=== PATIENT | female | born 1960 | race African-American/Black ===

== ENCOUNTER 2020-08-19 15:09 | Emergency (ER) | payer OTHER ==
[2020-08-19 16:01] LABS: Absolute Lymphocytes (CBC) 1.8 K/uL (0.7-4.9); Basophils % 0.3 % (0-1.3); Hematocrit 37.8 % (36.0-45.0); Lymphocytes % 28.9 % (15.3-44.8); MPV 8.2 fL (7.6-11.3); RBC Red Blood Cell Count 4.61 M/uL (3.86-4.86)
[2020-08-19 16:13] LABS: BUN Blood Urea Nitrogen 10 mg/dL (7-18); Bicarbonate 29 mmol/L (21-32); Glucose Level 101 mg/dL (74-106); NT PRO-BNP 259 pg/mL (<125); Potassium 3.5 mmol/L (3.5-5.1); Sodium Level 141 mmol/L (136-145); Troponin (Emerg Dept Use Only) < 0.02 ng/mL (0.0-0.045)
--- NOTE | 2020-08-19 16:17 | RAD REPORT ---
EXAM DESCRIPTION: Zac Single View08/19/2020 3:35 pm CLINICAL HISTORY: Chest pain COMPARISON: none FINDINGS: The lungs appear clear of acute infiltrate. The heart is normal size IMPRESSION: No acute abnormalities displayed
--- NOTE | 2020-08-19 16:31 | ER ---
Nurse's Notes [facility] Name: Karen Clements Age: 59 yrs Sex: Female : 1960 Arrival Date: 08/19/2020 Time: 15:14 Bed 7 Private MD: Diagnosis: Chest pain, unspecified Presentation: 08/19 15:14 Chief complaint: EMS states: Pt reported non-radiating right sided chest pain chest jl7 pain, rated 5/10 and sharp. Pt states "No chest pain now." in triage but reports LIAO rated 4/10. EMS reports pt going through some stress with neighbors and pt reports chest pain coming from stress. Coronavirus screen: Client denies travel out of the [place] in the last 14 days. At this time, the client does not indicate any symptoms associated with coronavirus-19. Ebola Screen: No symptoms or risks identified at this time. Initial Sepsis Screen: Does the patient meet any 2 criteria? No. Patient's initial sepsis screen is negative. Does the patient have a suspected source of infection? No. Patient's initial sepsis screen is negative. Risk Assessment: Do you want to hurt yourself or someone else? Patient reports no desire to harm self or others. Onset of symptoms was August 19, 2020. Care prior to arrival: None. Transition of care: patient was not received from another setting of care. 15:14 Method Of Arrival: EMS: [facility] 15:14 Acuity: JACQUELIN 3 jl7 Triage Assessment: 15:18 General: Appears in no apparent distress. uncomfortable, Behavior is calm, cooperative, jl7 appropriate for age. Pain: Complains of pain in LIAO Pain currently is 4 out of 10 on a pain scale. Neuro: Level of Consciousness is awake, alert, obeys commands, Oriented to person, place, time, situation. Cardiovascular: Patient's skin is warm and dry. Respiratory: Airway is patent Respiratory effort is even, unlabored, Respiratory pattern is regular, symmetrical. Derm: Skin is pink, warm \\T\\ dry. Musculoskeletal: No signs and/or symptoms reported regarding the musculoskeletal system. Historical: - Allergies: 15:18 No Known Allergies; jl7 - Home Meds: 15:18 eye drops [Active]; jl7 - PMHx: 15:18 Glaucoma; jl7 - PSHx: 15:18 glaucoma; jl7 - Immunization history:: Adult Immunizations unknown. - Social history:: Smoking status: Patient denies any tobacco usage or history of. - Family history:: not pertinent. - Hospitalizations: : No recent hospitalization is reported. Screenin:20 Abuse screen: Denies threats or abuse. Denies injuries from another. Nutritional jl7 screening: No deficits noted. Tuberculosis screening: No symptoms or risk factors identified. 15:46 Fall Risk IV access (20 points). Total Gamble Fall Scale indicates No Risk (0-24 pts). jl7 Assessment: 15:20 General: See triage assessment. jl7 16:20 Reassessment: Patient appears in no apparent distress at this time. No changes from jl7 previously documented assessment. Patient and/or family updated on plan of care and expected duration. Pain level reassessed. Patient is alert, oriented x 3, equal unlabored respirations, skin warm/dry/pink. Vital Signs: 15:14 BP 145 / 77; Pulse 70; Resp 17; Temp 98.6; Pulse Ox 97% ; Weight 97.52 kg; Pain 4/10; jl7 16:20 BP 162 / 79; Pulse 65; Resp 17; Pulse Ox 99% ; jl7 ED Course: 15:14 Patient arrived in ED. jl7 15:17 Triage completed. jl7 15:18 Hao Higgins PA is PHCP. jr8 15:18 Timothy Ortiz MD is Attending Physician. jr8 15:18 Arm band placed on right wrist. jl7 15:19 EKG completed in triage. Results shown to MD. jl7 15:20 Patient has correct armband on for positive identification. Placed in gown. Bed in low jl7 position. Call light in reach. Side rails up X2. quality assurance monitor final on. Pulse ox on. NIBP on. Warm blanket given. 15:20 Patient maintains SpO2 saturation greater than 95% on room air. jl7 15:29 Daniel Christensen, BARBER is Primary Nurse. jl7 15:35 XRAY Chest (1 view) In Process Unspecified. EDMS 15:45 Initial lab(s) drawn, by ED staff, sent to lab. Inserted saline lock: 20 gauge in right jl7 antecubital area, using aseptic technique. ,using aseptic technique. Inserted by , women nurse Blood collected. 16:20 No provider procedures requiring assistance completed. jl7 16:46 IV discontinued, intact, bleeding controlled, No redness/swelling at site. Pressure jl7 dressing applied. Administered Medications: No medications were administered Outcome: 16:31 Discharge ordered by . rn 16:46 Discharged to home ambulatory. jl7 16:46 Condition: stable 16:46 Discharge instructions given to patient, Instructed on discharge instructions, follow up and referral plans. Demonstrated understanding of instructions, follow-up care. 16:47 Patient left the ED. jl7 Signatures: Dispatcher [employer] EDMS Timothy Ortiz MD MD rn Hao Higgins PA PA jr8 Daniel Christensen RN RN jl7 Corrections: (The following items were deleted from the chart) 16:46 16:20 IV discontinued, intact, bleeding controlled, No redness/swelling at site. jl7 Pressure dressing applied, jl7
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
[2020-08-19 16:53] VITALS: TEMP 98.6
[2020-08-19 16:54] VITALS: BP 162/79; O2SAT 99
--- NOTE | 2020-08-22 11:19 | EKG ---
Test Date: 2020-08-19 Test Time: 15:18:27 Fisher Diving: ESA MEASUREMENT RESULTS: Intervals: Rate: 82 MD: 134 QRSD: 74 QT: 380 QTc: 443 Index: P: 78 MD: 134 QRS: 27 T: -8 INTERPRETIVE STATEMENTS: Normal sinus rhythm Nonspecific T wave abnormality Abnormal ECG No previous ECG available for comparison Electronically Signed On 08-22-20 11:14:49 CDT by Walt Mena
== END 2020-08-19 16:47 | disposition home or self-care (01) ==
LOC: ER 15:09
DX: R07.9 Chest pain, unspecified (principal)
CPT/HCPCS: 36415; 71045; 80048; 83880; 84484; 85025; 93005; 99285

== ENCOUNTER 2021-01-03 19:25 | Emergency (ER) | payer OTHER ==
--- OUTSIDE RECORDS SUMMARY | 2021-01-03 19:30 | XMS REPORT | Continuity of Care Document ---
:1960 Author Organization [facility] t Address [address] [id number] Care Team Providers Name Role Phone Unavailable Unavailable Unavailable Payers Payer Name Policy Type Policy Number Effective Date Expiration Date S ource Problems This patient has no known problems. Allergies, Adverse Reactions, Alerts Allergy Allergy Status Severity Reaction(s) Onset Inactive Treating Comm ents Source Name Type Date Date Clinician No Known DA Active U 2019-11 [facility] Allergie 12-11 [place] s 00:00: d 00 [facility] Medications This patient has no known medications. Procedures This patient has no known procedures. Results Test Description Test Time Test Comments Results Result Comments Source TROPONIN-I 2020-10-11 23:13:00 Test Item Value Reference Range Interpretation Comme nts TROPONIN-I (test code = < 0.015 NG/ML 0.000-0.045 N Neg ative: </= 0.045 Positive: TROPI) >/= 0.046 Corre lation with serial results, other cardiac markers, and cl inical findings is necessary to determine the clinical signi ficance of this result. Quantit ative results using different methodologies should not be c ompared to one another as nume rical results may varyby meth od. Completed by Nursing: NOUA RFLX MICR CULT IF [id number] 21:41:00 Test Item Value Reference Range Interpretation Comments UA COLOR (test code = YELLOW discript YEL/STRAW COLU) UA APPEARANCE (test code CLEAR discript CLEAR = APPU) UA GLUCOSE DIPSTICK (test NEGATIVE mg/dL NEG code = DGLUU) UA BILIRUBIN DIPSTICK NEGATIVE mg/dL NEG (test code = BILU) UA KETONE DIPSTICK (test NEGATIVE mg/dL NEG code = KETU) UA SPECIFIC GRAVITY (test 1.010 SG 1.005-1.030 code = SGU) UA BLOOD DIPSTICK (test TRACE mg/DL NEG A code = JULIAN) UA PH DIPSTICK (test code 6.0 pH UNITS 5.0-7.0 = GRACE) UA PROTEIN DIPSTICK (test NEGATIVE mg/dL NEG code = PROU) UA UROBILINIOGEN DIPSTICK 0.2 mg/dL <2.0 (test code = URO) UA NITRITE DIPSTICK (test NEGATIVE SCREEN NEG code = JAGDISH) UA LEUKOCYTE ESTERASE NEGATIVE Leuk/mcL NEGATIVE DIPSTICK (test code = LEUU) UA WBC (test code = WBCU) 0-1 #WBC/HPF 0-3 UA RBC (test code = RBCU) 0-1 #RBC/HPF 0-3 UA BACTERIA (test code = NONE SEEN /HPF NONE-TRACE BACU) UA SQUAMOUS CELLS (test TRACE /HPF NONE code = SQU) UA CULTURE NEEDED? (test NO, WBC<10 Criteria Culture CHK code = UACULT) Indication for culture: RiskForSepsis-no oth srcUA RFLX MICR CULT IF [id number] 21:38:00 Test Item Value Reference Range Interpretation Comments UA COLOR (test code = COLU) YELLOW discript YEL/STRAW UA APPEARANCE (test code = CLEAR discript CLEAR APPU) UA GLUCOSE DIPSTICK (test NEGATIVE mg/dL NEG code = DGLUU) UA BILIRUBIN DIPSTICK (test NEGATIVE mg/dL NEG code = BILU) UA KETONE DIPSTICK (test NEGATIVE mg/dL NEG code = KETU) UA SPECIFIC GRAVITY (test 1.010 SG 1.005-1.030 code = SGU) UA BLOOD DIPSTICK (test TRACE mg/DL NEG A code = JULIAN) UA PH DIPSTICK (test code = 6.0 pH UNITS 5.0-7.0 GRACE) UA PROTEIN DIPSTICK (test NEGATIVE mg/dL NEG code = PROU) UA UROBILINIOGEN DIPSTICK 0.2 mg/dL <2.0 (test code = URO) UA NITRITE DIPSTICK (test NEGATIVE SCREEN NEG code = JAGDISH) UA LEUKOCYTE ESTERASE NEGATIVE Leuk/mcL NEGATIVE DIPSTICK (test code = LEUU) UA CULTURE NEEDED? (test Criteria Culture CHK code = UACULT) Indication for culture: RiskForSepsis-no oth src- XR CHEST 1 [id number] 21:09:00[facility] 1960 Sex: F Name: LOLI FRANCES [facility] : 1960ge/S: 59 / F [id number] #: [id number] Loc: [place] [address] Phys: Meredith Hidalgo MD Acct: [id number] Dis Date: Status: REG ER PHONE#: [phone] Exam Date: 10/11/20202029 FAX #: Reason: chest pain EXAMS: CPT: [id number] XR CHEST 1 V 49640 Fluoro Time: DAP (Gy m2): Air Kerma (mGy): Location code: H5 Chest1 view Indication: chest pain. Comparison: None Findings: The heart and mediastinum are not remarkable. Costophrenic angles are clear. Lungs are clear. Bone is unremarkable for age. Impression: 1. No radiographic evidence of acute cardiopulmonary disease. Electronically Signed by Ricki Desai o n 10/11/2020 at 2109 Reported and signed by: Alvino Desai M.D. CC: Meredith Hidalgo MD PAGE 1 SignedReport Name: LOLI FRANCES [facility] : 1960 Age/S: 59 / F [id number] #: [id number] Loc: [place] [address] Phys: Meredith Hidalgo MD Acct: [id number] Dis Date: Status: REG ER PHONE #: [phone] Exam Date: 10/11/20202029 FAX #: Reason: chest pain EXAMS: CPT: [id number] XR CHEST 1 V 60502 Fluoro Time: DAP (Gy m2): Air Kerma (mGy): <Continued> Technologist: Gwendolyn Breen RT(R)(CT) Trnscb Date/Time: 10/11/2020 (2108) [email or web address] Orig Print D/T: S: 10/11/2020 (2111) PAGE 2 Signed Report- CT HEAD/BRAIN W/O CONT 2020-10-11 20:43:00 [facility] 1960 Sex: F Name: LOLI FRANCES [facility] : 1960ge/S: 59 / F [address] #: [id number] Loc: [place] [address] Phys: Meredith Hidalgo MD Acct: [id number] Dis Date: Status: REG ER PHONE#: [phone] Exam Date: 10/11/20202022 FAX #: Reason:weakness EXAMS: CPT: [id number] CT HEAD/BRAIN W/O CONT 32796 Location code: [address] Brain Without Contrast Indication: weakness Comparison: None Technical factors: Axial images were obtained from the base of the skull to the vertex. Sagittal and coronal reconstruction. This exam was performed according to our departmental dose-optimization program, which includes automated exposure control, adjustment of the mA and/or kV according to patient size and/or use of iterative reconstruction technique. Findings: Ventricles and sulci are of normal caliber for patient age. No hemorrhage, mass-effect, or abnormal extra-axial fluid collection. No evidence of acute infarct. Calvarium is unremarkable. No confluent otomastoid disease. Orbits are normal in appearance.Paranasal sinuses are clear. Impression: 1. Normal non contrast CT scan of the brain. at 2042 Reported and signed by: Alvino Desai M.D. PAGE 1 Signed Report (CONTINUED) Name: LOLI FRANCES [place] : 1960 Age/S: 59 / F [id number] Unit #: [id number] Loc: [place] [address] Phys: Meredith Hidalgo MD Acct: [id number] Dis Date: Status: REG ER PHONE #: [phone] Exam Date: 10/11/20202022 FAX #: Reason: weakness EXAMS: CPT: [id number] CT HEAD/BRAIN W/O CONT 21888 <Continued> CC: Meredith Hidalgo MD Technologist:Gwendolyn Breen, RT(R)(CT) CTDI: DLP: Trnscb Date/Time: 10/11/2020 (2042) [email or web address] Orig Print D/T: S: 10/11/2020 (2046) PAGE 2 Signed ReportBASIC METABOLIC [id number] 20:32:00 Test Item Value Reference Range Interpretation Comments SODIUM (test code = NA) 140 mmol/L 134-147 N POTASSIUM (test code = 3.5 mmol/L 3.4-5.0 N K) CHLORIDE (test code = 109 mmol/L 100-108 H CL) CARBON DIOXIDE (test 26 mmol/L 21-32 N code = CO2) ANION GAP (test code = 5.0 GAP calc 4.0-15.0 N GAP) GLUCOSE (test code = 102 MG/DL 70-110 N GLU) BLOOD UREA NITROGEN 13 MG/DL 7-18 N (test code = BUN) GLOMERULAR FILTRATION >=60 max estimate >60 RATE (test code = GFR) estGFR CREATININE (test code = 0.7 MG/DL 0.6-1.0 N CREAT) CALCIUM (test code = CA) 9.0 MG/DL 8.5-10.1 N Completed by Nursing: NOHEPATIC FUNCTION [id number] 20:32:00 Test Item Value Reference Range Interpretation Comments TOTAL PROTEIN (test code = PROT) 7.5 G/DL 6.4-8.2 N ALBUMIN (test code = ALB) 3.4 G/DL 3.4-5.0 N BILIRUBIN TOTAL (test code = BILT) 0.40 MG/DL 0.2-1.2 N BILIRUBIN DIRECT (test code = 0.10 MG/DL 0.00-0.30 N BILD) BILIRUBIN INDIRECT (test code = 0.30 MG/DL 0.2-1.2 N BILIND) SGOT/AST (test code = AST) 9 Unit/L 15-37 L SGPT/ALT (test code = ALT) 18 Unit/L 12-78 N ALKALINE PHOSPHATASE TOTAL (test 74 Unit/L 45-117 N code = ALKP) Completed by Nursing: NOCREATINE KINASE (CK)2020-10-11 20:32:00 Test Item Value Reference Range Interpretation Comments CREATINE KINASE (CK) (test code = 58 Unit/L 26-192 N CK) Completed by Nursing: NONT PRO-BRAIN NATRIURETIC [id number] 20:32:00 Test Item Value Reference Range Interpretation Comments NT PRO-BRAIN NATRIURETIC PEPTI 177 PG/ML 0-100 H (test code = PROBNP) Completed by Nursing: [id number] 20:32:00 Test Item Value Reference Range Interpretation Comments TROPONIN-I (test < 0.015 NG/ML 0.000-0.045 N Negative: </= 0.045 code = TROPI) Positive: >/= 0.046 Correlation wit h serial results, other cardiac markers, and cl inical findings is nec essary to determine the c linical significance of this result. Quantit ative results using d ifferent methodologies s hould not be compared to one another as nume rical results may jack yby method. Completed by Nursing: NOCBC W/O [id number] 20:11:00 Test Item Value Reference Range Interpretation Comments WHITE BLOOD CELL (test code = WBC) 6.5 K/mm3 3.5-11.0 N RED BLOOD CELL (test code = RBC) 4.27 M/mm3 4.70-6.10 L HEMOGLOBIN (test code = HGB) 12.0 G/DL 10.4-14.9 N HEMATOCRIT (test code = HCT) 34.5 % 31.5-44.1 N MEAN CELL VOLUME (test code = MCV) 80.8 Fl 84.5-98.6 L MEAN CELL HGB (test code = MCH) 28.1 pg 27.0-34.2 N MEAN CELL HGB CONCETRATION (test 34.8 G/DL 31.5-34.0 H code = MCHC) RED CELL DISTRIBUTION WIDTH (test 14.2 SD 11.5-14.5 N code = RDW) PLATELET COUNT (test code = PLT) 281 K/mm3 150-450 N MEAN PLATELET VOLUME (test code = 9.70 fL 7.0-10.5 N MPV)
[2021-01-03 22:40] LABS: Absolute Lymphocytes (CBC) 3.1 K/uL (0.7-4.9); Basophils % 0.3 % (0-1.3); Hematocrit 33.5 % (36.0-45.0); Lymphocytes % 32.9 % (15.3-44.8); MPV 7.9 fL (7.6-11.3); RBC Red Blood Cell Count 4.08 M/uL (3.86-4.86)
[2021-01-03 22:47] LABS: Protime INR 0.99
[2021-01-03 22:54] LABS: Urine Blood NEGATIVE (NEG); Urine Glucose NEGATIVE (NEG); Urine Protein NEGATIVE (NEG); Urine Specific Gravity <1.005 (1.005-1.030); Urine pH 6.5 (5.0-7.0)
[2021-01-03 23:02] LABS: ALT/SGPT 23 U/L (12-78); AST/SGOT 12 U/L (15-37); Albumin 3.4 g/dL (3.4-5.0); Alkaline Phosphatase 84 U/L (45-117); BUN Blood Urea Nitrogen 15 mg/dL (7-18); Bicarbonate 27 mmol/L (21-32); Bilirubin Direct < 0.1 mg/dL (0-0.2); Bilirubin Total 0.3 mg/dL (0.2-1.0); Glucose Level 97 mg/dL (74-106); Magnesium 2.1 mg/dL (1.8-2.4); NT PRO-BNP 70 pg/mL (<125); Potassium 3.3 mmol/L (3.5-5.1); Protein, Total 7.7 g/dL (6.4-8.2); Sodium Level 141 mmol/L (136-145); Troponin (Emerg Dept Use Only) < 0.02 ng/mL (0.0-0.045)
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
[2021-01-04 02:56] VITALS: TEMP 97.5; O2SAT 100
[2021-01-04 02:57] VITALS: BP 155/99
--- NOTE | 2021-01-04 09:03 | RAD REPORT ---
EXAM DESCRIPTION: Zac Single View01/03/2021 10:23 pm CLINICAL HISTORY: Chest pain COMPARISON: 2019 FINDINGS: The lungs appear clear of acute infiltrate. The heart is normal size IMPRESSION: No acute abnormalities displayed
--- NOTE | 2021-01-04 13:43 | RAD REPORT ---
EXAM DESCRIPTION: CT - Head Brain Wo Cont - 01/04/2021 6:35 am [facility]: CT HEAD WITHOUT IV CONTRAST CLINICAL HISTORY: MENTAL STATUS CHANGE. TECHNIQUE: Axial, coronal, and sagittal images through the brain were performed in the absence of in travenous contrast. This exam was performed according to our departmental dose-optimization program w hich includes use of Automated Exposure Control, adjustment of the mA and/or kV according to patient size and/or use of iterative reconstruction technique. COMPARISON: None. FINDINGS: The brain parenchyma appears unremarkable. There is no intra-axial or extra-axial bleed se en. There is no mass or mass effect. The ventricles are normal in size shape and configuration. The o rbital contents appear unremarkable. Near-complete opacification of the slightly hypoplastic right maxillary sinus, with an air-fluid leve l present. The remaining paranasal sinuses and mastoid air cells are patent. No fracture is identifie d. IMPRESSION: 1. No acute intracranial abnormality identified. 2. Right maxillary sinus opacification with an air-fluid level. Correlate for acute sinusitis. Electronically signed by: Skyla Kearney MD 01/03/2021 10:51 PM DEMAND PLANNING ANALYST Due to temporary technical issues with the PACS/Fluency reporting system, reports are being signed by the in house radiologists without review as a courtesy to insure prompt reporting. The interpreting radiologist is fully responsible for the content of the report.
--- NOTE | 2021-01-05 | EKG ---
Test Date: 2021-01-03 Test Time: 19:54:03 Proof Sorter: FANY MEASUREMENT RESULTS: Intervals: Rate: 106 [place]: 116 QRSD: 72 QT: 348 QTc: 462 [place]: P: 49 [place]: 116 QRS: 9 T: -37 INTERPRETIVE STATEMENTS: Sinus tachycardia Minimal voltage criteria for LVH, may be normal variant T wave abnormality, consider inferior ischemia Abnormal ECG Compared to ECG 08/19/2020 15:18:27 Left ventricular hypertrophy now present Possible ischemia now present Sinus rhythm no longer present T-wave abnormality still present Electronically Signed On 01-04-21 23:57:58 SHOPPER MARKETING MANAGER by Walt Mena
== END 2021-01-03 23:58 | disposition home or self-care (01) ==
LOC: ER 19:25
DX: F29 Unspecified psychosis not due to a substance or known physiological condition (principal); I10 Essential (primary) hypertension
CPT/HCPCS: 36415; 70450; 71045; 80048; 80076; 81003; 83735; 83880; 84484; 85025; 85610; 93005; 99284

== ENCOUNTER 2021-01-04 09:39 | Emergency (ER) | payer OTHER ==
--- OUTSIDE RECORDS SUMMARY | 2021-01-04 09:42 | XMS REPORT | Continuity of Care Document ---
:1960 [address] [facility] t Address [address] [place] [address] Care Team Providers Name Role Phone Unavailable Unavailable Unavailable Payers Payer Name Policy Type Policy Number Effective Date Expiration Date S ource Problems This patient has no known problems. Allergies, Adverse Reactions, Alerts Allergy Allergy Status Severity Reaction(s) Onset Inactive Treating Comm ents Source Name Type Date Date Clinician No Known DA Active U 2019-11 [facility] All[facility]ie 12-11 [place] s 00:00: d 00 [facility] Medications This patient has no known medications. [...] by Nursing: NOUA RFLX MICR CULT IF [id number] 21:41:00 Test Item Value Reference Range Interpretation [...] RiskForSepsis-no oth srcUA RFLX MICR CULT IF [id number] 21:38:00 Test Item Value Reference Range Interpretation [...] culture: RiskForSepsis-no oth src- XR CHEST 1 [id number] [facility]:09[facility] 1960 Sex: F Name: LOLI FRANCES [facility] : 1960ge/S: 59 / F [id number] Unit #: [id number] Loc: [place] [address] Phys: Meredith Hidalgo MD Acct: [id number] Dis Date: Status: REG ER PHONE#: [phone] Exam Date: 10/11/20202029 FAX #: Reason: chest pain EXAMS: CPT: [id number] XR CHEST 1 V 85073 Fluoro Time: DAP (Gy m2): Air Kerma [...] MD PAGE 1 SignedReport Name: LOLI FRANCES [facility] : 1960 Age/S: 59 / F [id number] Unit #: [id number] Loc: [place] [address] Phys: Meredith Hidalgo MD Acct: [id number] Dis Date: Status: REG ER PHONE #: [phone] Exam Date: 10/11/20202029 FAX #: Reason: chest pain EXAMS: CPT: [id number] XR CHEST 1 V 56148 Fluoro Time: DAP (Gy m2): Air Kerma (mGy): <Continued> Technologist: Gwendolyn Breen, RT(R)(CT) Trnscb Date/Time: 10/11/2020 (2108) [email or web address] Orig Print D/T: S: 10/11/2020 (2111) PAGE 2 Signed Report- CT HEAD/BRAIN W/O CONT 2020-10-11 20:43:00 [facility] 1960 Sex: F Name: LOLI FRANCES [facility] : 1960ge/S: 59 / F [address] Unit #: [id number] Loc: [place] [address] Phys: Meredith Hidalgo MD Acct: [id number] Dis Date: Status: REG ER PHONE#: [phone] Exam Date: 10/11/20202022 FAX #: Reason:weakness EXAMS: CPT: [id number] CT HEAD/BRAIN W/O CONT 75728 Location code: [address] Brain Without [...] 1 Signed Report (CONTINUED) Name: LOLI FRANCES : 1960 Age/S: 59 / F [id number] Unit #: [id number] Loc: [place] [address] Phys: Meredith Hidalgo MD Acct: [id number] Dis Date: Status: REG ER PHONE #: [phone] Exam Date: 10/11/20202022 FAX #: Reason: weakness EXAMS: CPT: [id number] CT HEAD/BRAIN W/O CONT 83427 <Continued> CC: Meredith Hidalgo MD Technologist:Gwendolyn Breen RT(R)(CT) CTDI: DLP: Trnscb Date/Time: 10/11/2020 (2042) [email or web address] Orig Print D/T: S: 10/11/2020 (2046) PAGE 2 Signed ReportBASIC METABOLIC [id number] 20:32:00 Test Item Value Reference Range Interpretation [...] 8.5-10.1 N Completed by Nursing: NOHEPATIC FUNCTION [id number] 20:32:00 Test Item Value Reference Range Interpretation [...] CK) Completed by Nursing: NONT PRO-BRAIN NATRIURETIC [id number] 20:32:00 Test Item Value Reference Range Interpretation Comments NT PRO-BRAIN NATRIURETIC PEPTI 177 PG/ML 0-100 H (test code = PROBNP) Completed by Nursing: [id number] 20:32:00 Test Item Value Reference Range Interpretation [...] yby method. Completed by Nursing: NOCBC W/O [id number] 20:11:00 Test Item Value Reference Range Interpretation [...]
[2021-01-04 11:09] LABS: Absolute Lymphocytes (CBC) 1.6 K/uL (0.7-4.9); Basophils % 0.5 % (0-1.3); Hematocrit 33.6 % (36.0-45.0); Lymphocytes % 19.1 % (15.3-44.8); MPV 7.9 fL (7.6-11.3); RBC Red Blood Cell Count 4.12 M/uL (3.86-4.86)
[2021-01-04] MEDS ORDERED: ASPIRIN EC 81 MG TAB PO ONE (11:27)
[2021-01-04] MEDS ORDERED: LORAZEPAM 1 MG TABLET ONE (11:28)
[2021-01-04 11:31] LABS: ALT/SGPT 23 U/L (12-78); AST/SGOT 15 U/L (15-37); Albumin 3.8 g/dL (3.4-5.0); Alkaline Phosphatase 79 U/L (45-117); BUN Blood Urea Nitrogen 9 mg/dL (7-18); Bicarbonate 28 mmol/L (21-32); Bilirubin Total 0.7 mg/dL (0.2-1.0); Glucose Level 95 mg/dL (74-106); Potassium 3.1 mmol/L (3.5-5.1); Sodium Level 142 mmol/L (136-145); Troponin (Emerg Dept Use Only) < 0.02 ng/mL (0.0-0.045)
--- NOTE | 2021-01-04 11:41 | ER ---
Nurse's Notes [facility] Name: Karen Clements Age: 60 yrs Sex: Female : 1960 Arrival Date: 01/04/2021 Time: 09:39 Bed 14 Private MD: Diagnosis: Essential (primary) hypertension;Unspecified psychosis not due to a substance or known physiological condition;Schizophrenia, unspecified;Chest pain, unspecified;Hypokalemia Presentation: 01/04 09:49 Chief complaint: Patient's son or daughter states: "she was here last night for anxiety. They checked everything out but didn't give her anything for anxiety. We tried to call the psychiatrist, but everybody is all booked up. It's all mental, and she needs something to calm her down until she can see a psychiatrist.". Coronavirus screen: Client denies travel out of the [place] in the last 14 days. Ebola Screen: Patient denies exposure to infectious person. Patient denies travel to an Ebola-affected area in the 21 days before illness onset. Initial Sepsis Screen: Does the patient meet any 2 criteria? No. Patient's initial sepsis screen is negative. Does the patient have a suspected source of infection? No. Patient's initial sepsis screen is negative. Risk Assessment: Do you want to hurt yourself or someone else? Patient reports no desire to harm self or others. Onset of symptoms was January 03, 2021. 09:49 Method Of Arrival: Ambulatory ss 09:49 Acuity: JACQUELIN 4 ss Historical: - Allergies: 09:53 No Known Allergies; ss - PMHx: 09:53 Glaucoma; Hypertension; Depression; Anxiety; ss - Immunization history:: Adult Immunizations up to date. - Social history:: Smoking status: Patient denies any tobacco usage or history of. - Family history:: not pertinent. Screenin:00 Abuse screen: Denies threats or abuse. Denies injuries from another. Nutritional dm14 screening: No deficits noted. Tuberculosis screening: No symptoms or risk factors identified. Fall Risk None identified. Assessment: 10:00 General: Appears distressed, comfortable, obese, Behavior is cooperative, agitated, dm14 restless. 10:00 Pain: Denies pain. Cardiovascular: BP is elevated. Hasn't taken her blood pressure dm14 medication as of yet. 10:00 General: Appears distressed, comfortable, obese, Behavior is cooperative, agitated, dm14 restless. Pain: Denies pain. Vital Signs: 09:49 BP 158 / 111; Pulse 88; Resp 16; Temp 97.0(TE); Pulse Ox 100% on R/A; Weight 95.25 kg; ss Height 5 ft. 7 in. (170.18 cm); Pain 0/10; 09:49 Body Mass Index 32.89 (95.25 kg, 170.18 cm) ED Course: 09:39 Patient arrived in ED. ds1 09:52 Triage completed. ss 09:53 Arm band placed on right wrist. ss 10:00 Patient has correct armband on for positive identification. Bed in low position. Call dm14 light in reach. Side rails up X2. Pulse ox on. NIBP on. 10:00 No provider procedures requiring assistance completed. IV discontinued, intact, dm14 bleeding controlled, No redness/swelling at site. Pressure dressing applied. Patient maintains SpO2 saturation greater than 95% on room air. 10:01 Cory Monaco MD is Attending Physician. [facility] 10:57 Initial lab(s) drawn, by vt, sent to lab. Inserted saline lock: 22 gauge in right dh3 antecubital area, using aseptic technique. Blood collected. 11:04 EKG done, by ED staff, reviewed by Cory Monaco MD. [facility] 11:08 Fatou Ayon, BARBER is Primary Nurse. dm14 11:40 Osman Villafana MD is Referral Physician. pineda Administered Medications: 11:15 Drug: Ativan 2 mg Route: PO; dm14 12:18 Follow up: Response: No adverse reaction; Anxiety decreased dm14 11:15 Drug: Aspirin 81 mg Route: PO; dm14 11:55 Drug: Potassium Effervescent Tablet 50 mEq Route: PO; dm14 12:17 Follow up: Response: No adverse reaction dm14 Outcome: 10:00 Discharged to home via wheelchair, with family. dm14 10:00 Condition: stable 10:00 Discharge instructions given to patient, family, Instructed on discharge instructions, follow up and referral plans. medication usage, Demonstrated understanding of instructions, follow-up care, medications, Prescriptions given X 2. 11:40 Discharge ordered by . pineda 12:28 Patient left the ED. ll1 Signatures: Cory Monaco MD MD cha Sanford, Demi ds1 Antoinette Carrero RN RN Nurys Tate 3 Janet Waldrop RN RN ll1 Fatou Ayon RN RN dm14 Corrections: (The following items were deleted from the chart) 10:23 10:22 BP 115 / 54; Pulse 62bpm; Resp 16bpm; Pulse Ox 97% RA; Temp 97.6F Oral; 3 3 12:41 12:19 General: Appears distressed, comfortable, obese, Behavior is cooperative, dm14 agitated, restless, dm14 12:41 12:19 Pain: Denies pain. dm14 dm14
--- NOTE | 2021-01-04 11:41 | EDPHYS ---
Physician Documentation [facility] Name: Karen Clements Age: 60 yrs Sex: Female : 1960 Arrival Date: 01/04/2021 Time: 09:39 Bed 14 Private MD: ED Physician Cory Monaco HPI: 01/04 10:48 This 60 yrs old Black Female presents to ER via Ambulatory with complaints of Anxiety. pineda 10:48 The patient presents to the emergency department with psychosis. Onset: The pineda symptoms/episode began/occurred 1 year(s) ago. Past psychiatric history: Prior diagnosis: depression, schizophrenia, Psychiatric medications include: seroquel. The patient or guardian reports chest pain that is located primarily in the anterior chest wall. Onset: 1 week(s) ago. The pain does not radiate. Associated signs and symptoms: The patient has no apparent associated signs or symptoms. Associated signs and symptoms: The patient has no apparent associated signs or symptoms. The chest pain is described as burning. Modifying factors: The symptoms are alleviated by nothing. the symptoms are aggravated by nothing. Historical: - Allergies: 09:53 No Known Allergies; ss - PMHx: 09:53 Glaucoma; Hypertension; Depression; Anxiety; ss - Immunization history:: Adult Immunizations up to date. - Social history:: Smoking status: Patient denies any tobacco usage or history of. - Family history:: not pertinent. ROS: 10:48 Constitutional: Negative for fever, chills, and weight loss, Eyes: Negative for injury, pineda pain, redness, and discharge, ENT: Negative for injury, pain, and discharge, Neck: Negative for injury, pain, and swelling, Respiratory: Negative for shortness of breath, cough, wheezing, and pleuritic chest pain, Abdomen/GI: Negative for abdominal pain, nausea, vomiting, diarrhea, and constipation, Back: Negative for injury and pain, : Negative for injury, bleeding, discharge, and swelling, MS/Extremity: Negative for injury and deformity, Skin: Negative for injury, rash, and discoloration, Neuro: Negative for headache, weakness, numbness, tingling, and seizure, Allergy/Immunology: Negative for hives, rash, and allergies, Endocrine: Negative for neck swelling, polydipsia, polyuria, polyphagia, and marked weight changes, Hematologic/Lymphatic: Negative for swollen nodes, abnormal bleeding, and unusual bruising. 10:48 Cardiovascular: Positive for chest pain, of the chest. Exam: 10:48 Constitutional: This is a well developed, well nourished patient who is awake, alert, pineda and in no acute distress. Head/Face: Normocephalic, atraumatic. Eyes: Pupils equal round and reactive to light, extra-ocular motions intact. Lids and lashes normal. Conjunctiva and sclera are non-icteric and not injected. Cornea within normal limits. Periorbital areas with no swelling, redness, or edema. ENT: Nares patent. No nasal discharge, no septal abnormalities noted. Tympanic membranes are normal and external auditory canals are clear. Oropharynx with no redness, swelling, or masses, exudates, or evidence of obstruction, uvula midline. Mucous membranes moist. Neck: Trachea midline, no thyromegaly or masses palpated, and no cervical lymphadenopathy. Supple, full range of motion without nuchal rigidity, or vertebral point tenderness. No Meningismus. Chest/axilla: Normal chest wall appearance and motion. Nontender with no deformity. No lesions are appreciated. Cardiovascular: Regular rate and rhythm with a normal S1 and S2. No gallops, murmurs, or rubs. Normal PMI, no JVD. No pulse deficits. Respiratory: Lungs have equal breath sounds bilaterally, clear to auscultation and percussion. No rales, rhonchi or wheezes noted. No increased work of breathing, no retractions or nasal flaring. Abdomen/GI: Soft, non-tender, with normal bowel sounds. No distension or tympany. No guarding or rebound. No evidence of tenderness throughout. Back: No spinal tenderness. No costovertebral tenderness. Full range of motion. Female : Normal external genitalia. Skin: Warm, dry with normal turgor. Normal color with no rashes, no lesions, and no evidence of cellulitis. MS/ Extremity: Pulses equal, no cyanosis. Neurovascular intact. Full, normal range of motion. Neuro: Awake and alert, GCS 15, oriented to person, place, time, and situation. Cranial nerves II-XII grossly intact. Motor strength 5/5 in all extremities. Sensory grossly intact. Cerebellar exam normal. Normal gait. 10:48 Psych: Behavior/mood is pleasant, cooperative, Affect is calm, Oriented to person, place, time, Patient has no thoughts/intents to harm self or others. Judgement / Insight is normal. Memory is normal. Delusions/hallucinations are present and described as delusion, easy to redirect. Vital Signs: 09:49 BP 158 / 111; Pulse 88; Resp 16; Temp 97.0(TE); Pulse Ox 100% on R/A; Weight 95.25 kg; ss Height 5 ft. 7 in. (170.18 cm); Pain 0/10; 09:49 Body Mass Index 32.89 (95.25 kg, 170.18 cm) ss MDM: 10:01 Patient medically screened. pineda 10:51 Differential diagnosis: depression, psychosis secondary to non-compliance, abnormal pineda EKG, coronary artery disease chest wall pain, congestive heart failure. HEART Score: History: Slightly Suspicious (0), ECG: Normal (0), Age: > 45 and < 65 years (1), Risk Factors: 1 or 2 risk factors (1), [Hypertension] [Obesity] Troponin: < or = 1 x Normal Limit (0). The patient was not given aspirin in the Emergency Department. Patient reports taking aspirin within the past 24 hours. The patient's deep vein thrombosis risk score was calculated as follows: Total Score: 0. This patient was found to be at low risk for a deep vein thrombosis by using the Well's assessment criteria. The patient's pulmonary embolism risk score was calculated as follows: Total Score: 3-6 points. This patient was found to be at moderate risk for a pulmonary embolism by using the Well's assessment criteria. CHANTELLE Risk Score: TOTAL SCORE = 0. Data reviewed: vital signs, nurses notes, old medical records, lab test result(s), EKG, radiologic studies. Data interpreted: monitor technician: rate is 88 beats/min, rhythm is regular, Pulse oximetry: on room air is 100 %. Test interpretation: by ED physician or midlevel provider: ECG, plain radiologic studies. Counseling: I had a detailed discussion with the patient and/or guardian regarding: the historical points, exam findings, and any diagnostic results supporting the discharge/admit diagnosis, the presence of at least one elevated blood pressure reading (>120/80) during this emergency department visit, lab results, radiology results, the need for outpatient follow up, for definitive care, a bromination equipment operator, an gyn, a psychiatrist. 01/04 10:43 Order name: CBC with Diff; Complete Time: 11:20 [facility] 01/04 10:43 Order name: Comprehensive Metabolic Panel; Complete Time: 11:39 [facility] 01/04 10:02 Order name: EKG; Complete Time: 10:02 [facility] 01/04 10:43 Order name: Troponin (emerg Dept Use Only); Complete Time: 11:39 [facility] Administered Medications: 11:15 Drug: Ativan 2 mg Route: PO; dm14 12:18 Follow up: Response: No adverse reaction; Anxiety decreased dm14 11:15 Drug: Aspirin 81 mg Route: PO; dm14 11:55 Drug: Potassium Effervescent Tablet 50 mEq Route: PO; dm14 12:17 Follow up: Response: No adverse reaction dm14 Disposition: 01/04/21 11:40 Discharged to Home. Impression: Essential (primary) hypertension, Unspecified psychosis not due to a substance or known physiological condition, Schizophrenia, unspecified, Chest pain, unspecified, Hypokalemia. - Condition is Stable. - Discharge Instructions: Nonspecific Chest Pain, Potassium Content of Foods, Hypertension, Schizophrenia, Nonspecific Chest Pain, [id number], Hypertension, Ydxc-ge-Hptu, Psychosis, Aspirin and Your Heart, Hypokalemia. - Prescriptions for Ativan 0.5 mg Oral Tablet - take 1 tablet by ORAL route every 8 hours As needed; 20 tablet. Pepcid 20 mg Oral Tablet - take 1 tablet by ORAL route every 12 hours for 10 days; 20 tablet. - Medication Reconciliation Form, Thank You Letter, Antibiotic Education, Prescription Opioid Use form. - Follow up: Private Physician; When: 2 - 3 days; Reason: Recheck today's complaints, Continuance of care, Re-evaluation by your physician. Follow up: Osman Villafana; When: 2 - 3 days; Reason: Recheck today's complaints, Continuance of care, Re-evaluation by your physician. - Problem is new. - Symptoms have improved. Signatures: Dispatcher [employer] EDCory Young MD MD cha Smirch, Shelby, RN RN ss Lewis, Lynsay, RN RN ll1 Fatou Ayon RN RN dm14 Corrections: (The following items were deleted from the chart) 10:30 10:02 Acetaminophen Level ordered. [facility] 10:30 10:02 Basic Metabolic Panel ordered. [facility] 10:30 10:02 CBC with Automated Diff ordered. [facility] 10:30 10:02 ETHANOL+C.LAB.BRZ ordered. [facility] 10:30 10:02 HEPATIC FUNCTION+C.LAB.BRZ ordered. [facility] 10:30 10:02 SALICYLATE+C.LAB.BRZ ordered. [facility] 10:31 10:02 IV Saline Lock ordered. [facility] 10:32 10:02 EKG - Nurse/Tech ordered. [facility] 10:32 10:02 Labs collected and sent ordered. [facility] 10:32 10:02 Urine Dipstick-Ancillary ordered. [facility] 10:38 10:02 PROTIME (+INR)+COAG.LAB.BRZ ordered. [facility] 10:38 10:02 PTT, ACTIVATED+COAG.LAB.BRZ ordered. [facility] 10:38 10:02 URINE DRUG SCREEN+CHEM UR.LAB.BRZ ordered. [facility] 12:28 11:40 01/04/2021 11:40 Discharged to Home. Impression: Essential (primary) ll1 hypertension; Unspecified psychosis not due to a substance or known physiological condition; Schizophrenia, unspecified; Chest pain, unspecified; Hypokalemia. Condition is Stable. Discharge Instructions: Nonspecific Chest Pain, Hypertension, Schizophrenia, Nonspecific Chest Pain, Iptb-[id number]-Vdcy, Hypertension, Zzip-pb-[id number], Psychosis, Aspirin and Your Heart. Prescriptions for Ativan 0.5 mg Oral Tablet - take 1 tablet by ORAL route every 8 hours As needed; 20 tablet, Pepcid 20 mg Oral Tablet - take 1 tablet by ORAL route every 12 hours for 10 days; 20 tablet. and Forms are Medication Reconciliation Form, Thank You Letter, Antibiotic Education, Prescription Opioid Use. Follow up: Private Physician; When: 2 - 3 days; Reason: Recheck today's complaints, Continuance of care, Re-evaluation by your physician. Follow up: Osman Villafana; When: 2 - 3 days; Reason: Recheck today's complaints, Continuance of care, Re-evaluation by your physician. Problem is new. Symptoms have improved. pineda
[2021-01-04] MEDS ORDERED: POTASSIUM 25 MEQ EFFERV TAB ONE (12:09)
[2021-01-04 13:04] VITALS: BP 158/111; TEMP 97; O2SAT 100
--- NOTE | 2021-01-06 05:43 | EKG ---
Test Date: 2021-01-04 Test Time: 11:04:27 E D Tech: DUY MEASUREMENT RESULTS: Intervals: Rate: 71 [place]: QRSD: 76 QT: 412 QTc: 447 [place]: P: [place]: QRS: 35 T: 20 INTERPRETIVE STATEMENTS: Accelerated Junctional rhythm Abnormal ECG Compared to ECG 01/03/2021 19:54:03 Accelerated junctional rhythm now present Sinus tachycardia no longer present Left ventricular hypertrophy no longer present T-wave abnormality no longer present Possible ischemia no longer present Electronically Signed On 01-06-21 05:36:18 LAWN SPRINKLER INSTALLER by Walt Mena
== END 2021-01-04 12:28 | disposition home or self-care (01) ==
LOC: ER 09:39
DX: F20.9 Schizophrenia, unspecified (principal); E87.6 Hypokalemia; I10 Essential (primary) hypertension; R07.9 Chest pain, unspecified
CPT/HCPCS: 36415; 80053; 84484; 85025; 93005; 99284

== ENCOUNTER 2021-05-08 12:24 | Emergency (ER) | payer OTHER ==
[2021-05-08] MEDS ORDERED: LORazepam 2 MG/ML VIAL ONE (13:09)
[2021-05-08] MEDS ORDERED: ASPIRIN EC 81 MG TAB PO ONE (13:11)
[2021-05-08] MEDS ORDERED: NA CHLORIDE 0.9% 1,000 ML ONE (13:11)
--- NOTE | 2021-05-08 13:29 | RAD REPORT ---
EXAM DESCRIPTION: CT - Head Brain Wo Cont - 05/08/2021 1:00 pm CLINICAL HISTORY: Headache COMPARISON: December 2020 TECHNIQUE: Computed axial tomography of the head was obtained. IV contrast was not requested. All CT scans are performed using dose optimization technique as appropriate and may include automated exposure control or mA/KV adjustment according to patient size. FINDINGS: An intracranial bleed is not seen . The ventricles are normal in caliber. No extra-axial fluid collection is noted. Fluid within the sinuses/ mastoids is not seen. IMPRESSION: No acute intracranial abnormality is seen. If patient's symptoms persist MRI of the bra in would be recommended.
[2021-05-08 13:39] LABS: Absolute Lymphocytes (CBC) 1.6 K/uL (0.7-4.9); Basophils % 0.7 % (0-1.3); Hematocrit 34.3 % (36.0-45.0); MPV 7.7 fL (7.6-11.3); RBC Red Blood Cell Count 4.26 M/uL (3.86-4.86)
--- NOTE | 2021-05-08 13:39 | RAD REPORT ---
EXAM DESCRIPTION: Zac Single View05/08/2021 1:14 pm CLINICAL HISTORY: Chest pain COMPARISON: December 2020 FINDINGS: The lungs appear clear of acute infiltrate. The heart is normal size IMPRESSION: No acute abnormalities displayed
[2021-05-08 14:02] LABS: Magnesium 2.3 mg/dL (1.8-2.4); NT PRO-BNP 250 pg/mL (<125); Troponin (Emerg Dept Use Only) < 0.02 ng/mL (0.0-0.045)
[2021-05-08 14:09] LABS: Protime INR 1.09
[2021-05-08 14:28] LABS: ALT/SGPT 26 U/L (12-78); AST/SGOT 12 U/L (15-37); Albumin 3.4 g/dL (3.4-5.0); Alkaline Phosphatase 80 U/L (45-117); BUN Blood Urea Nitrogen 10 mg/dL (7-18); Bicarbonate 26 mmol/L (21-32); Bilirubin Direct 0.1 mg/dL (0-0.2); Bilirubin Total 0.6 mg/dL (0.2-1.0); Glucose Level 104 mg/dL (74-106); Potassium 3.7 mmol/L (3.5-5.1); Protein, Total 7.8 g/dL (6.4-8.2); Sodium Level 140 mmol/L (136-145)
--- NOTE | 2021-05-08 14:31 | EDPHYS ---
Physician Documentation [facility] Name: Karen Clements Age: 60 yrs Sex: Female : 1960 Arrival Date: 05/08/2021 Time: 12:25 Bed 7 Private MD: Jose Juan Chaney ED Physician Cory Monaco HPI: 05/08 13:47 This 60 yrs old Black Female presents to ER via Wheelchair with complaints of Anxiety, pineda racing heart. 13:47 The patient presents to the emergency department with anxiety. Onset: The pineda symptoms/episode began/occurred just prior to arrival, this morning. Past psychiatric history: Prior diagnosis: depression. The patient or guardian reports chest pain that is located primarily in the anterior chest wall, bilaterally. Onset: this morning, today. The patient presents with a history of heart racing, heart skipping beats. Context: The symptoms occur with anxiety. Onset: The symptoms/episode began/occurred. Duration: The patient or guardian reports a single episode, that is still ongoing. Modifying factors: The symptoms are aggravated by stress. The pain does not radiate. Historical: - Allergies: 12:37 No Known Allergies; iw - Home Meds: 12:37 lisinopril 10 mg Oral tab 1 tab once daily [Active]; alprazolam 1 mg oral tab twice a iw day [Active]; - PMHx: 12:37 Depression; Anxiety; Glaucoma; Hypertension; iw - Immunization history:: Client reports receiving the 2nd dose of the Covid vaccine. - Social history:: Smoking status: Patient denies any tobacco usage or history of. ROS: 13:48 Constitutional: Negative for fever, chills, and weight loss, Eyes: Negative for injury, pineda pain, redness, and discharge, ENT: Negative for injury, pain, and discharge, Neck: Negative for injury, pain, and swelling, Respiratory: Negative for shortness of breath, cough, wheezing, and pleuritic chest pain, Abdomen/GI: Negative for abdominal pain, nausea, vomiting, diarrhea, and constipation, Back: Negative for injury and pain, : Negative for injury, bleeding, discharge, and swelling, MS/Extremity: Negative for injury and deformity, Skin: Negative for injury, rash, and discoloration, Neuro: Negative for headache, weakness, numbness, tingling, and seizure, Allergy/Immunology: Negative for hives, rash, and allergies, Endocrine: Negative for neck swelling, polydipsia, polyuria, polyphagia, and marked weight changes, Hematologic/Lymphatic: Negative for swollen nodes, abnormal bleeding, and unusual bruising. 13:48 Cardiovascular: Positive for chest pain, palpitations. 13:48 Psych: Positive for anxiety, depression. Exam: 13:50 Constitutional: This is a well developed, well nourished patient who is awake, alert, pineda and in no acute distress. Head/Face: Normocephalic, atraumatic. Eyes: Pupils equal round and reactive to light, extra-ocular motions intact. Lids and lashes normal. Conjunctiva and sclera are non-icteric and not injected. Cornea within normal limits. Periorbital areas with no swelling, redness, or edema. ENT: Nares patent. No nasal discharge, no septal abnormalities noted. Tympanic membranes are normal and external auditory canals are clear. Oropharynx with no redness, swelling, or masses, exudates, or evidence of obstruction, uvula midline. Mucous membranes moist. Neck: Trachea midline, no thyromegaly or masses palpated, and no cervical lymphadenopathy. Supple, full range of motion without nuchal rigidity, or vertebral point tenderness. No Meningismus. Chest/axilla: Normal chest wall appearance and motion. Nontender with no deformity. No lesions are appreciated. Cardiovascular: Regular rate and rhythm with a normal S1 and S2. No gallops, murmurs, or rubs. Normal PMI, no JVD. No pulse deficits. Respiratory: Lungs have equal breath sounds bilaterally, clear to auscultation and percussion. No rales, rhonchi or wheezes noted. No increased work of breathing, no retractions or nasal flaring. Abdomen/GI: Soft, non-tender, with normal bowel sounds. No distension or tympany. No guarding or rebound. No evidence of tenderness throughout. Back: No spinal tenderness. No costovertebral tenderness. Full range of motion. Skin: Warm, dry with normal turgor. Normal color with no rashes, no lesions, and no evidence of cellulitis. MS/ Extremity: Pulses equal, no cyanosis. Neurovascular intact. Full, normal range of motion. Neuro: Awake and alert, GCS 15, oriented to person, place, time, and situation. Cranial nerves II-XII grossly intact. Motor strength 5/5 in all extremities. Sensory grossly intact. Cerebellar exam normal. Normal gait. Psych: Awake, alert, with orientation to person, place and time. Behavior, mood, and affect are within normal limits. 13:50 Musculoskeletal/extremity: DVT Exam: No signs of deep vein thrombosis. no pain, no swelling, no tenderness, negative Homans' sign noted on exam, no appreciated bluish discoloration, no erythema, no increased warmth. 13:55 ECG was reviewed by the Attending Physician. [facility] Vital Signs: 12:34 BP 144 / 87; Pulse 84; Resp 16; Temp 97.7; Pulse Ox 100% on R/A; Pain 9/10; iw 13:30 BP 137 / 80; Pulse 65; Resp 20; Pulse Ox 100% on R/A; kg 13:45 BP 140 / 83; Pulse 61; Resp 16; Pulse Ox 100% ; kg 14:00 BP 144 / 90; Pulse 54; Resp 14; Pulse Ox 100% ; kg 14:30 BP 129 / 77; Pulse 56; Resp 13; Pulse Ox 100% ; kg MDM: 12:38 Patient medically screened. [facility] 13:50 Differential diagnosis: acute psychotic break, depression, psychosis secondary to pineda non-compliance, abnormal EKG, chest wall pain, congestive heart failure costochondritis, esophagitis, gastritis, hiatal hernia, pancreatitis, peptic ulcer disease, pericarditis. HEART Score: History: Slightly Suspicious (0), ECG: Non specific repolarization disturbance / LBTB / PM (1), Age: > 45 and < 65 years (1), Risk Factors: 1 or 2 risk factors (1), [Hypertension] [+ Family HX] Troponin: < or = 1 x Normal Limit (0). The patient was given aspirin in the Emergency Department. The patient's deep vein thrombosis risk score was calculated as follows: Total Score: 0. This patient was found to be at low risk for a deep vein thrombosis by using the Well's assessment criteria. The patient's pulmonary embolism risk score was calculated as follows: Total Score: 0-2 points. This patient was found to be at low risk for a pulmonary embolism by using the Well's assessment criteria. CHANTELLE Risk Score: TOTAL SCORE = 0. Data reviewed: vital signs, nurses notes, lab test result(s), EKG, radiologic studies, CT scan, plain films. Data interpreted: secured entrance monitor: rate is 84 beats/min, rhythm is regular, Pulse oximetry: on room air is 100 %. Test interpretation: by ED physician or midlevel provider: ECG, plain radiologic studies. Counseling: I had a detailed discussion with the patient and/or guardian regarding: the historical points, exam findings, and any diagnostic results supporting the discharge/admit diagnosis, the presence of at least one elevated blood pressure reading (>120/80) during this emergency department visit, lab results, radiology results, the need for outpatient follow up, for definitive care, a fur comber, a family practitioner. 05/08 12:39 Order name: Acetaminophen; Complete Time: 14:[address] [facility] 05/08 12:39 Order name: Basic Metabolic Panel; Complete Time: 14:[address] [facility] 05/08 12:39 Order name: CBC with Diff; Complete Time: 13:[address] [facility] 05/08 12:39 Order name: ETOH Level; Complete Time: 13:[address] [facility] 05/08 12:39 Order name: Hepatic Function; Complete Time: 14:[address] [facility] 05/08 12:39 Order name: PT-INR; Complete Time: 14:[address] [facility] 05/08 12:39 Order name: Ptt, Activated; Complete Time: 14:[address] [facility] 05/08 12:39 Order name: Salicylate; Complete Time: 14:[address] [facility] 05/08 12:39 Order name: Urine Drug Screen [facility] 05/08 12:43 Order name: Magnesium; Complete Time: 14:[address] [facility] 05/08 12:43 Order name: NT PRO-BNP; Complete Time: 14:[address] [facility] 05/08 12:43 Order name: Troponin (emerg Dept Use Only); Complete Time: 14:[address] [facility] 05/08 12:43 Order name: XRAY Chest (1 view); Complete Time: 13:[address] [facility] 05/08 14:37 Order name: Urine Dipstick-Ancillary EDVT 05/08 12:39 Order name: Urine Test (obtain specimen) [facility] 05/08 12:39 Order name: EKG; Complete Time: 12:[address] [facility] 05/08 12:39 Order name: EKG - Nurse/Tech; Complete Time: 13:[address] [facility] 05/08 12:39 Order name: IV Saline Lock; Complete Time: 13:[address] [facility] 05/08 12:39 Order name: Labs collected and sent; Complete Time: 13:[address] [facility] 05/08 12:39 Order name: Suicide Screening ([place]); Complete Time: 13:[address] [facility] 05/08 12:39 Order name: Urine Dipstick-Ancillary (obtain specimen); Complete Time: 14:[address] [facility] 05/08 12:43 Order name: Cardiac monitoring; Complete Time: 13:[address] [facility] 05/08 12:43 Order name: O2 Per Protocol; Complete Time: 13:[address] [facility] 05/08 12:43 Order name: O2 Sat Monitoring; Complete Time: 13:[address] [facility] 05/08 12:43 Order name: CT Head Brain wo Cont; Complete Time: 13:55 pineda EC:55 Rate is 84 beats/min. Rhythm is regular. QRS [place] is Normal. RI interval is normal. QRS pineda interval is normal. QT interval is normal. No Q waves. T waves are Normal. No ST changes noted. Clinical impression: NSR w/ Non-specific ST/T Changes and No evidence of ischemia. Interpreted by me. Reviewed by me. Administered Medications: 13:00 Drug: Aspirin 162 mg Route: PO; kg 14:54 Follow up: Response: No adverse reaction kg 13:15 Drug: NS 0.9% 1000 ml Route: IV; Rate: 1 bolus; Site: right antecubital; kg 14:10 Follow up: IV Status: Completed infusion; IV Intake: 1000ml kg 13:15 Drug: Ativan (LORazepam) 1 mg Route: IVP; Site: right antecubital; kg 14:54 Follow up: Response: No adverse reaction; Anxiety decreased kg Disposition: 05/08/21 14:31 Discharged to Home. Impression: Anxiety disorder, unspecified, Palpitations, Other chest pain - non cardiac. - Condition is Stable. - Discharge Instructions: Panic Attacks, Nonspecific Chest Pain, Palpitations, Panic Attacks, [id number], Aspirin and Your Heart, Palpitations, [id number]. - Prescriptions for Hydroxyzine HCl 25 mg Oral Tablet - take 1 tablet by ORAL route every 6 hours As needed; 30 tablet. Toprol XL 25 mg Oral Tablet - take 1 tablet by ORAL route once daily; 20 tablet. - Medication Reconciliation Form, Thank You Letter, Antibiotic Education, Prescription Opioid Use form. - Follow up: Jose Juan Chaney; When: 2 - 3 days; Reason: Recheck today's complaints, Continuance of care, Re-evaluation by your physician. Follow up: Walt Mena; When: As needed; Reason: Recheck today's complaints, Continuance of care, Re-evaluation by your physician. - Problem is new. - Symptoms have improved. Signatures: Dispatcher [employer] EDVT Cory Monaco MD MD cha Williams, Irene, RN RN iw Alida Reis RN RN kg Corrections: (The following items were deleted from the chart) 15:05 14:31 05/08/2021 14:31 Discharged to Home. Impression: Anxiety disorder, unspecified; kg Palpitations; Other chest pain - non cardiac. Condition is Stable. Discharge Instructions: Panic Attacks, Nonspecific Chest Pain, Palpitations, Panic Attacks, [id number], Aspirin and Your Heart, Palpitations, [id number]. Prescriptions for Hydroxyzine HCl 25 mg Oral Tablet - take 1 tablet by ORAL route every 6 hours As needed; 30 tablet, Toprol XL 25 mg Oral Tablet - take 1 tablet by ORAL route once daily; 20 tablet. and Forms are Medication Reconciliation Form, Thank You Letter, Antibiotic Education, Prescription Opioid Use. Follow up: Jose Juan Chaney; When: 2 - 3 days; Reason: Recheck today's complaints, Continuance of care, Re-evaluation by your physician. Follow up: Walt Mena; When: As needed; Reason: Recheck today's complaints, Continuance of care, Re-evaluation by your physician. Problem is new. Symptoms have improved. pinead
--- NOTE | 2021-05-08 14:31 | ER ---
Nurse's Notes [facility] Name: Karen Clements Age: 60 yrs Sex: Female : 1960 Arrival Date: 05/08/2021 Time: 12:25 Bed 7 Private MD: Jose Juan Chaney Diagnosis: Anxiety disorder, unspecified;Palpitations;Other chest pain-non cardiac Presentation: 05/08 12:34 Chief complaint: Patient states: started having anxiety this morning after breakfast, iw feels like her heart is racing and she is having chest pains, she took her anxiety medicine but it's not helping. Coronavirus screen: At this time, the client does not indicate any symptoms associated with coronavirus-19. Ebola Screen: Patient negative for fever greater than or equal to 101.5 degrees Fahrenheit, and additional compatible Ebola Virus Disease symptoms Patient denies exposure to infectious person. Patient denies travel to an Ebola-affected area in the 21 days before illness onset. No symptoms or risks identified at this time. Initial Sepsis Screen: Does the patient meet any 2 criteria? No. Patient's initial sepsis screen is negative. Does the patient have a suspected source of infection? No. Patient's initial sepsis screen is negative. Risk Assessment: Do you want to hurt yourself or someone else? Patient reports no desire to harm self or others. Onset of symptoms was May 08, 2021. 12:34 Method Of Arrival: Wheelchair iw 12:34 Acuity: JACQUELIN 3 iw Historical: - Allergies: 12:37 No Known Allergies; iw - Home Meds: 12:37 lisinopril 10 mg Oral tab 1 tab once daily [Active]; alprazolam 1 mg oral tab twice a iw day [Active]; - PMHx: 12:37 Depression; Anxiety; Glaucoma; Hypertension; iw - Immunization history:: Client reports receiving the 2nd dose of the Covid vaccine. - Social history:: Smoking status: Patient denies any tobacco usage or history of. Screenin:00 Fall Risk None identified. No fall in past 12 months (0 pts). No secondary diagnosis (0 kg pts). IV access (20 points). Ambulatory Aid- None/Bed Rest/Nurse Assist (0 pts). Gait- Normal/Bed Rest/Wheelchair (0 pts) Mental Status- Oriented to own ability (0 pts). Total Gamble Fall Scale indicates No Risk (0-24 pts). 14:50 Abuse screen: Denies threats or abuse. Denies injuries from another. Nutritional kg screening: No deficits noted. Tuberculosis screening: No symptoms or risk factors identified. Assessment: 13:00 General: Appears in no apparent distress. Behavior is cooperative, appropriate for age, kg anxious, quiet. Pain: Complains of pain in chest Pain currently is 9 out of 10 on a pain scale. at worst was 10 out of 10 on a pain scale. level that patient reports is acceptable is 2 out of 10 on a pain scale. Quality of pain is described as aching. Neuro: No deficits noted. Cardiovascular: Reports chest pain, lightheadedness, palpitations, Heart tones S1 S2 Capillary refill < 3 seconds Pulses are all present. are 3+ in right radial artery and left radial artery Rhythm is regular. Respiratory: No deficits noted. Airway is patent Trachea midline Respiratory effort is even, unlabored, relaxed, Respiratory pattern is regular, symmetrical, Breath sounds are clear bilaterally. GI: No deficits noted. : No deficits noted. EENT: No deficits noted. Derm: No deficits noted. Musculoskeletal: No deficits noted. Vital Signs: 12:34 BP 144 / 87; Pulse 84; Resp 16; Temp 97.7; Pulse Ox 100% on R/A; Pain 9/10; iw 13:30 BP 137 / 80; Pulse 65; Resp 20; Pulse Ox 100% on R/A; kg 13:45 BP 140 / 83; Pulse 61; Resp 16; Pulse Ox 100% ; kg 14:00 BP 144 / 90; Pulse 54; Resp 14; Pulse Ox 100% ; kg 14:30 BP 129 / 77; Pulse 56; Resp 13; Pulse Ox 100% ; kg ED Course: 12:25 Patient arrived in ED. am2 12:25 Jose Juan Chaney MD is Private Physician. am2 12:35 Triage completed. iw 12:37 Arm band placed on. iw 12:38 Cory Monaco MD is Attending Physician. pineda 12:45 Alida Reis, BARBER is Primary Nurse. kg 13:00 CT Head Brain wo Cont In Process Unspecified. EDMS 13:14 XRAY Chest (1 view) In Process Unspecified. EDMS 13:30 Inserted saline lock: 20 gauge in right antecubital area, using aseptic technique. IV kg discontinued, intact, bleeding controlled, No redness/swelling at site. Pressure dressing applied. 13:38 Magnesium Sent. kg 13:38 NT PRO-BNP Sent. kg 13:38 Troponin (emerg Dept Use Only) Sent. kg 13:39 Acetaminophen Sent. kg 13:39 Basic Metabolic Panel Sent. kg 13:40 CBC with Diff Sent. kg 13:40 ETOH Level Sent. kg 13:40 Hepatic Function Sent. kg 13:40 PT-INR Sent. kg 13:40 Ptt, Activated Sent. kg 13:40 Salicylate Sent. kg 14:31 Jose Juan Chaney MD is Referral Physician. pineda 14:31 Walt Mena MD is Referral Physician. pineda 14:51 No provider procedures requiring assistance completed. kg 14:52 Patient has correct armband on for positive identification. Bed in low position. Call kg light in reach. Side rails up X2. Administered Medications: 13:00 Drug: Aspirin 162 mg Route: PO; kg 14:54 Follow up: Response: No adverse reaction kg 13:15 Drug: NS 0.9% 1000 ml Route: IV; Rate: 1 bolus; Site: right antecubital; kg 14:10 Follow up: IV Status: Completed infusion; IV Intake: 1000ml kg 13:15 Drug: Ativan (LORazepam) 1 mg Route: IVP; Site: right antecubital; kg 14:54 Follow up: Response: No adverse reaction; Anxiety decreased kg Intake: 14:10 IV: 1000ml; Total: 1000ml. kg Outcome: 14:31 Discharge ordered by . pineda 14:52 Discharged to home ambulatory. kg 14:52 Condition: good 14:52 Discharge instructions given to patient, family, Instructed on discharge instructions, follow up and referral plans. Demonstrated understanding of instructions, follow-up care, medications, Prescriptions given X 2. 15:05 Patient left the ED. kg Signatures: Dispatcher [employer] Cory Dennis MD MD cha Williams, Irene, Callie Quijano RN, am2 Alida Reis RN RN kg
[2021-05-08 14:37] LABS: Urine Blood Trace-lysed (Negative); Urine Glucose Negative (Negative); Urine Protein Negative (Negative); Urine Specific Gravity 1.015 (1.005-1.030)
[2021-05-08 14:59] LABS: Barbiturates NEGATIVE (NEGATIVE); Benzodiazepines POSITIVE (NEGATIVE); Cocaine NEGATIVE (NEGATIVE); METHAMPHETAM NEGATIVE (NEGATIVE); Methadone NEGATIVE (NEGATIVE); Opiates NEGATIVE (NEGATIVE); Phencyclidine NEGATIVE (NEGATIVE); THC Cannibis NEGATIVE (NEGATIVE)
[2021-05-08 15:30] VITALS: TEMP 97.7; O2SAT 100
[2021-05-08 15:36] VITALS: BP 129/77
--- NOTE | 2021-05-09 15:51 | EKG ---
Test Date: 2021-05-08 Test Time: 13:22:07 Action Installer: KULWINDER MEASUREMENT RESULTS: Intervals: Rate: 64 [place]: 140 QRSD: 78 QT: 400 QTc: 412 [place]: P: 46 NJ: 140 QRS: 1 T: -5 INTERPRETIVE STATEMENTS: Normal sinus rhythm Minimal voltage criteria for LVH, may be normal variant Nonspecific T wave abnormality Abnormal ECG Compared to ECG 01/04/2021 11:04:27 Left ventricular hypertrophy now present T-wave abnormality now present Accelerated junctional rhythm no longer present Electronically Signed On 05-09-21 15:47:21 CDT by Walt Mena
== END 2021-05-08 15:05 | disposition home or self-care (01) ==
LOC: ER 12:24
DX: F41.9 Anxiety disorder, unspecified (principal); R00.2 Palpitations; R07.89 Other chest pain; F32.9 Major depressive disorder, single episode, unspecified; I10 Essential (primary) hypertension; H40.9 Unspecified glaucoma
CPT/HCPCS: 96361; 93005; 85025; 80048; 36415; 80320; 83735; 80329 ×2; 85610; 80076; 85730; 81003; 84484; 83880; 80307; 70450; 71045; 96374; 99284; J7030

== ENCOUNTER 2021-10-12 12:17 | Emergency (ER) | payer OTHER ==
--- OUTSIDE RECORDS SUMMARY | 2021-10-12 12:21 | XMS REPORT | Continuity of Care Document ---
:1960 Author Organization [facility] t Address [address] [place] [address] Care Team Providers Name Role Phone MARLO Attending Clinician Unavailable MANOJ Attending Clinician Unavailable Payers Payer Name Policy Type Policy Number Effective Date Expiration Date S ource [employer] MEDICARE [id number] 2021 [facility] 00:00:00 Problems This patient has no known problems. Allergies, Adverse Reactions, Alerts Allergy Allergy Status Severity Reaction(s) Onset Inactive Treating Comm ents Source Name Type Date Date Clinician No Known DA [facility] U 2019[facility]11 [facility] No Known DA Active U 2019-11 [facility] Medications This patient has no known medications. Procedures This patient has no known procedures. Encounters Start End Encounter Admission Attending Care Care Encounter Source Date/Time Date/Time Type Type Clinicians Facility Department ID 2021-08-[address] [facility] [id number] [place] 10:01:04 [facility] 2020-10-11 Inpatient [facility] LASHAE [id number] [facility] 19:13:00 [facility] 2021-03-08 2021-03-08 [facility] [id number] [place] 00:00:00 00:00:00 LELO jay 2021-03-07 2021-03-[address] [facility] [id number] [place] 08:10:54 08:16:08 LELO jay 2021-03-04 2021-03-04 [facility] [id number] [place] 11:13:31 11:54:54 LELO jay 2021-03-04 2021-03-04 [facility] [id number] [place] 11:07:33 11:24:25 LELO jay 2021-03-04 2021-03-04 [facility] [id number] [place] 00:00:00 00:00:00 LELO jay 2021-03-03 2021-03-03 Emergency E [facility] [address] 16:10:00 16:10:00 2021-03-03 2021-03-03 [facility] [id number] [place] 14:17:26 14:43:00 LELO jay 2021-03-02 2021-03-[address] [facility] [id number] [place] 00:00:00 00:00:00 [facility] 2021-02-25 2021-02-25 [facility] [id number] [place] 00:00:00 00:00:00 LELO jay 2021-02-25 2021-02-[address] [facility] [id number] [place] 00:00:00 00:00:00 [facility] 2021-02-23 2021-02-23 [facility] [id number] [place] 08:23:29 09:45:01 LELO jay 2021-02-17 2021-02-17 [facility] [id number] [place] 07:48:50 09:01:21 LELO jay 2021-02-17 2021-02-17 [facility] [id number] [place] 00:00:00 00:00:00 LELO jay Results Test Description Test Time Test Comments [...] by Nursing: NOUA RFLX MICR CULT IF [id number] 21:41:00 Test Item Value Reference Range Interpretation [...] RiskForSepsis-no oth srcUA RFLX MICR CULT IF [id number] 21:38:00 Test Item Value Reference Range Interpretation [...] culture: RiskForSepsis-no oth src- XR CHEST 1 [id number] 21:09:[facility] 1960 Sex: F Name: LOLI FRANCES [facility] : 1960ge/S: 59 / F [id number] Unit #: [id number] Loc: [place] [address] Phys: Meredith Hidalgo MD Acct: [id number] Dis Date: Status: REG ER PHONE#: [phone] Exam Date: 10/11/20202029 FAX #: Reason: chest pain EXAMS: CPT: [id number] XR CHEST 1 V 54509 Fluoro Time: DAP (Gy m2): Air Kerma (mGy): Location code: H5 Chest1 view Indication: chest pain. Comparison: None Findings: The heart and mediastinum are not remarkable. Costophrenic angles are clear. Lungs are clear. Bone is unremarkable for age. Impression: 1. No radiographic evidence of acute cardiopulmonary disease. Electronically Signed by Ricki Desai o n 10/11/2020 at 210 Reported and signed by: Alvino Desai M.D. CC: Meredith Hidalgo MD PAGE 1 SignedReport Name: LOLI FRANCES [place] : 1960 Age/S: 59 / F [id number] Unit #: [id number] Loc: [place] [address] Phys: Meredith Hidalgo MD Acct: [id number] Dis Date: Status: REG ER PHONE #: [phone] Exam Date: 10/11/20202029 FAX #: Reason: chest pain EXAMS: CPT: [id number] XR CHEST 1 V 00339 Fluoro Time: DAP (Gy m2): Air Kerma (mGy): <Continued> Technologist: Gwendolyn Breen RT(R)(CT) Trnscb Date/Time: 10/11/2020 (2108) [email or web address] Orig Print D/T: S: 10/11/2020 (2111) PAGE 2 Signed Report- CT HEAD/BRAIN W/O CONT 2020-10-11 20:43:[address] [facility] : 1960 Sex: F Name: LOLI FRANCES [place] : 1960ge/S: 59 / F [id number] Unit #: [id number] Loc: [place] [address] Phys: Meredith Hidalgo MD Acct: [id number] Dis Date: Status: REG ER PHONE#: [phone] Exam Date: 10/11/20202022 FAX #: Reason:weakness EXAMS: CPT: [id number] CT HEAD/BRAIN W/O CONT 07689 Location code: [address] Brain Without [...] 1 Signed Report (CONTINUED) Name: LOLI FRANCES [facility] : 1960 Age/S: 59 / F [id number] Unit #: [id number] Loc: [place] [address] Phys: Meredith Hidalgo MD Acct: [id number] Dis Date: Status: REG ER PHONE #: [phone] Exam Date: 10/11/20202022 FAX #: Reason: weakness EXAMS: CPT: [id number] CT HEAD/BRAIN W/O CONT 12225 <Continued> CC: Meredith Hidalgo MD Technologist:Gwendolyn Breen, RT(R)(CT) CTDI: DLP: Trnscb Date/Time: 10/11/2020 (2042) [email or web address] Orig Print D/T: S: 10/11/2020 (2046) PAGE 2 Signed ReportBASIC METABOLIC [id number] 20:32:00 Test Item Value Reference Range Interpretation [...] 8.5-10.1 N Completed by Nursing: NOHEPATIC FUNCTION [id number] 20:32:00 Test Item Value Reference Range Interpretation [...] CK) Completed by Nursing: NONT PRO-BRAIN NATRIURETIC [id number] 20:32:00 Test Item Value Reference Range Interpretation Comments NT PRO-BRAIN NATRIURETIC PEPTI 177 PG/ML 0-100 H (test code = PROBNP) Completed by Nursing: [id number] 20:32:00 Test Item Value Reference Range Interpretation [...] may jack yby method. Completed by Nursing: NOCJERRY W/O [id number] 20:11:00 Test Item Value Reference Range Interpretation [...]
[2021-10-12] MEDS ORDERED: MORPHINE 2 MG/ML SYR ONE (15:20)
[2021-10-12] MEDS ORDERED: KETOROLAC 30 MG/ML INJ ONE (15:21)
[2021-10-12] MEDS ORDERED: ONDANSETRON 4 MG/2 ML VIAL ONE (15:21)
[2021-10-12] MEDS ORDERED: NA CHLORIDE 0.9% 1,000 ML ONE (15:21)
[2021-10-12 15:54] LABS: Absolute Lymphocytes (CBC) 2.7 K/uL (0.7-4.9); Basophils % 0.3 % (0-1.3); Hematocrit 33.8 % (36.0-45.0); Lymphocytes % 33.2 % (15.3-44.8); RBC Red Blood Cell Count 4.12 M/uL (3.86-4.86)
[2021-10-12 16:07] LABS: ALT/SGPT 30 U/L (12-78); AST/SGOT 14 U/L (15-37); Albumin 3.3 g/dL (3.4-5.0); Alkaline Phosphatase 95 U/L (45-117); BUN Blood Urea Nitrogen 9 mg/dL (7-18); Bicarbonate 30 mmol/L (21-32); Bilirubin Total 0.3 mg/dL (0.2-1.0); Glucose Level 105 mg/dL (74-106); Potassium 3.5 mmol/L (3.5-5.1); Protein, Total 8.3 g/dL (6.4-8.2); Sodium Level 140 mmol/L (136-145)
--- NOTE | 2021-10-12 16:40 | RAD REPORT ---
EXAM DESCRIPTION: CT - Head Brain Wo Cont - 10/12/2021 4:26 pm CLINICAL HISTORY: Headache COMPARISON: May 2021 TECHNIQUE: Computed axial tomography of the head was obtained. IV contrast was not requested. All CT scans are performed using dose optimization technique as appropriate and may include automated exposure control or mA/KV adjustment according to patient size. FINDINGS: An intracranial bleed is not seen . The ventricles are normal in caliber. No extra-axial fluid collection is noted. Fluid within the sinuses/ mastoids is not seen. Chronic right maxillary sinusitis IMPRESSION: No acute intracranial abnormality is seen. If patient's symptoms persist MRI of the bra in would be recommended.
--- NOTE | 2021-10-12 16:44 | RAD REPORT ---
EXAM DESCRIPTION: CTHead angio10/12/2021 4:26 pm CLINICAL HISTORY: Headache COMPARISON: None TECHNIQUE: CT angiogram of the head was obtained. 3D MIPS reconstruction performed. All CT scans are performed using dose optimization technique as appropriate and may include automated exposure control or mA/KV adjustment according to patient size. FINDINGS: Mild calcified plaque within the distal internal carotid arteries. The basilar, internal carotid, anterior cerebral, middle cerebral and posterior cerebral arteries oth erwise appear unremarkable. . An aneurysm is not seen. A significant stenosis is not noted. IMPRESSION: No acute abnormality displayed
[2021-10-12 17:32] LABS: Urine Blood Negative (Negative); Urine Glucose Negative (Negative); Urine Protein Negative (Negative); Urine Specific Gravity 1.015 (1.005-1.030)
--- NOTE | 2021-10-12 17:45 | ER ---
Nurse's Notes [facility] Name: Karen Clements Age: 60 yrs Sex: Female : 1960 Arrival Date: 10/12/2021 Time: 12:51 Bed 6 Private MD: Diagnosis: Headache;Essential (primary) hypertension Presentation: 10/12 13:40 Chief complaint: Patient states: "the crown of my head is throbbing and its really hot" vg1 states it has been going on since July 2021. Denies NV or injury. Pt states has been out of Lisinopril since April 2021. Coronavirus screen: Vaccine status: Patient reports receiving the 2nd dose of the covid vaccine. Client denies travel out of the [place] in the last 14 days. Ebola Screen: Patient negative for fever greater than or equal to 101.5 degrees Fahrenheit, and additional compatible Ebola Virus Disease symptoms. Initial Sepsis Screen: Does the patient meet any 2 criteria? No. Patient's initial sepsis screen is negative. Does the patient have a suspected source of infection? No. Patient's initial sepsis screen is negative. Risk Assessment: Do you want to hurt yourself or someone else? Patient reports no desire to harm self or others. Onset of symptoms was July 2021. 13:40 Method Of Arrival: Ambulatory vg1 13:40 Acuity: JACQUELIN 4 vg1 Triage Assessment: 13:40 General: Appears in no apparent distress. uncomfortable, Behavior is calm, cooperative. vg1 Pain: Complains of pain in head Pain currently is 8 out of 10 on a pain scale. 13:40 Neuro: Reports headache since July 2021. vg1 Historical: - Allergies: 13:43 No Known Allergies; vg1 - Home Meds: 13:43 alprazolam 1 mg Oral tab twice a day [Active]; metoprolol tartrate 25 mg Oral tab 1 tab vg1 once daily [Active]; lisinopril 10 mg Oral tab 1 tab once daily [Active]; - PMHx: 13:43 Anxiety; Depression; Glaucoma; Hypertension; vg1 - Immunization history:: Client reports receiving the 2nd dose of the Covid vaccine. - Social history:: Smoking status: Patient denies any tobacco usage or history of. - Family history:: not pertinent. Screenin:12 Abuse screen: Denies threats or abuse. Denies injuries from another. Nutritional bp screening: No deficits noted. Tuberculosis screening: No symptoms or risk factors identified. Fall Risk None identified. Assessment: 15:00 General: Appears in no apparent distress. uncomfortable, Behavior is cooperative, bp appropriate for age, anxious, PT AMBULATORY FROM TRIAGE.. Pain: Complains of pain in top of head. Neuro: Level of Consciousness is awake, alert, obeys commands, Oriented to Appropriate for age. Cardiovascular: No deficits noted. Respiratory: No deficits noted. GI: No signs and/or symptoms were reported involving the gastrointestinal system. : No deficits noted. EENT: No deficits noted. Derm: No deficits noted. Musculoskeletal: No deficits noted. 16:37 Reassessment: Patient appears in no apparent distress at this time. Patient and/or tw2 family updated on plan of care and expected duration. Pain level reassessed. Patient is alert, oriented x 3, equal unlabored respirations, skin warm/dry/pink. Patient states feeling better. Patient states symptoms have improved. 18:15 Reassessment: PT D/C HOME AMBULATORY WITH FAMILY, DX WITH HEADACHE AND HTN. bp Vital Signs: 13:40 BP 132 / 80; Pulse 68; Resp 18; Temp 97.2; Pulse Ox 100% ; Weight 104.33 kg; Height 5 vg1 ft. 7 in. (170.18 cm); Pain 8/10; 15:20 BP 153 / 83; Pulse 72; Resp 18; Pulse Ox 100% ; jg9 16:11 BP 146 / 80; Pulse 67; Resp 22; Pulse Ox 100% on R/A; jg9 16:37 Pain 0/10; tw2 18:15 BP 153 / 77; Pulse 62; Resp 17; Temp 98; Pulse Ox 100% ; bp 13:40 Body Mass Index 36.02 (104.33 kg, 170.18 cm) vg1 [place] Coma Score: 15:12 Eye Response: spontaneous(4). Verbal Response: oriented(5). Motor Response: obeys pineda commands(6). Total: 15. ED Course: 12:51 Patient arrived in ED. am2 13:40 Arm band placed on. vg1 13:43 Triage completed. vg1 15:03 Jovon Durbin, BARBER is Primary Nurse. bp 15:04 Cory Monaco MD is Attending Physician. pineda 15:10 Patient placed in an exam room, on a stretcher. [facility] 15:12 Patient has correct armband on for positive identification. Bed in low position. Call bp light in reach. Side rails up X2. 15:30 EKG completed in triage. Results shown to MD. jg9 15:31 No apparent distress. patient reports that she has been off her lisinopril 10mg for 9 jg9 months, patient was not able to afford the cost. 15:32 Inserted inserted by Kim Montero jg9 15:33 Inserted saline lock: 20 gauge in right antecubital area, using aseptic technique. jg9 forearm, using aseptic technique. Blood collected. Dressings:. 16:12 Resting quietly. jg9 16:26 CT Head Brain wo Cont In Process Unspecified. EDMS 16:26 CT Head Angio In Process Unspecified. EDMS 17:45 Elijah Ordoñez MD is Referral Physician. [facility] 18:15 No provider procedures requiring assistance completed. IV discontinued, intact, bp bleeding controlled, No redness/swelling at site. Pressure dressing applied. Administered Medications: 15:35 Drug: NS 0.9% 500 ml Route: IV; Rate: bolus; Site: right antecubital; j9 16:07 Follow up: IV Status: Completed infusion; IV converted to saline lock; IV Intake: 500ml j9 15:35 Drug: Zofran (Ondansetron) 4 mg Route: IVP; Site: right antecubital; j9 15:45 Follow up: Response: No adverse reaction; Marked relief of symptoms; Nausea is decreasedj9 15:36 Drug: morphine 2 mg Route: IVP; Site: right antecubital; jg9 15:45 Follow up: Response: No adverse reaction; Pain is decreased j9 16:37 Follow up: Response: No adverse reaction; Pain is decreased; RASS: Alert and Calm (0) tw2 18:17 Follow up: Response: No adverse reaction; Pain is decreased bp 15:37 Drug: Ketorolac 15 mg Route: IVP; Site: right antecubital; j9 15:45 Follow up: Response: No adverse reaction; Marked relief of symptoms; Pain is decreased 9 16:10 Drug: NS 0.9% 1000 ml Route: IV; Rate: 125 ml/hr; Site: right antecubital; jg9 18:16 Follow up: IV Status: Completed infusion; IV Intake: 250ml bp Intake: 16:07 IV: 500ml; Total: 500ml. jg9 18:16 IV: 250ml; Total: 750ml. bp Outcome: 17:45 Discharge ordered by MD. sung 18:15 Discharged to home ambulatory, with family. bp 18:15 Condition: stable 18:15 Discharge instructions given to patient, Instructed on discharge instructions, follow up and referral plans. medication usage, Demonstrated understanding of instructions, follow-up care, medications, Prescriptions given X 2. 18:17 Patient left the ED. bp Signatures: Dispatcher [employer] EDMS Cory Monaco MD MD cha Wise, Tara, RN RN tw2 Callie Marroquin Brian RN RN Tiffanie Galloway, RN RN vg1 Meredith Yuan RN RN jh5 Paola Squires jg9 Corrections: (The following items were deleted from the chart) 13:45 13:40 Pulse 68bpm; Resp 18bpm; Pulse Ox 100%; Temp 97.2F; 104.33 kg; Height 5 ft. 7 vg1 in.; BMI: 36.0; Pain 8/10; vg1 13:46 13:40 Chief complaint: Patient states: "the crown of my head is throbbing and its vg1 really hot" states it has been going on since July 2021. Denies NV or injury. vg1 16:16 15:30 EKG completed in triage. Results shown to MD. mullen jg9
--- NOTE | 2021-10-12 17:46 | EDPHYS ---
Physician Documentation [facility] Name: Karen Clements Age: 60 yrs Sex: Female : 1960 Arrival Date: 10/12/2021 Time: 12:51 Bed 6 Private MD: ED Physician Cory Monaco HPI: 10/12 15:10 This 60 yrs old Black Female presents to ER via Ambulatory with complaints of head pineda throbbing/hot. 15:10 The patient complains of pain to the top of head, left frontal area and right frontal pineda area. The patient describes the headache as aching. Onset: The symptoms/episode began/occurred 3 month(s) ago. Associated signs and symptoms: Pertinent positives: diffusely. Severity of symptoms: At its worst the pain was moderate, in the emergency department the pain is unchanged. Headache History: The patient has had previous headaches and this one is different than previous episodes. The symptoms are alleviated by nothing. the symptoms are aggravated by nothing. The patient has not experienced similar symptoms in the past. Historical: - Allergies: 13:43 No Known Allergies; vg1 - Home Meds: 13:43 alprazolam 1 mg Oral tab twice a day [Active]; metoprolol tartrate 25 mg Oral tab 1 tab vg1 once daily [Active]; lisinopril 10 mg Oral tab 1 tab once daily [Active]; - PMHx: 13:43 Anxiety; Depression; Glaucoma; Hypertension; vg1 - Immunization history:: Client reports receiving the 2nd dose of the Covid vaccine. - Social history:: Smoking status: Patient denies any tobacco usage or history of. - Family history:: not pertinent. ROS: 15:10 Constitutional: Negative for fever, chills, and weight loss, Eyes: Negative for injury, pineda pain, redness, and discharge, ENT: Negative for injury, pain, and discharge, Neck: Negative for injury, pain, and swelling, Cardiovascular: Negative for chest pain, palpitations, and edema, Respiratory: Negative for shortness of breath, cough, wheezing, and pleuritic chest pain, Abdomen/GI: Negative for abdominal pain, nausea, vomiting, diarrhea, and constipation, Back: Negative for injury and pain, : Negative for injury, bleeding, discharge, and swelling, MS/Extremity: Negative for injury and deformity, Skin: Negative for injury, rash, and discoloration, Psych: Negative for depression, anxiety, suicide ideation, homicidal ideation, and hallucinations, Allergy/Immunology: Negative for hives, rash, and allergies, Endocrine: Negative for neck swelling, polydipsia, polyuria, polyphagia, and marked weight changes, Hematologic/Lymphatic: Negative for swollen nodes, abnormal bleeding, and unusual bruising. 15:10 Neuro: Positive for headache. Exam: 15:10 Constitutional: This is a well developed, well nourished patient who is awake, alert, pineda and in no acute distress. Head/Face: Normocephalic, atraumatic. Eyes: Pupils equal round and reactive to light, extra-ocular motions intact. Lids and lashes normal. Conjunctiva and sclera are non-icteric and not injected. Cornea within normal limits. Periorbital areas with no swelling, redness, or edema. ENT: Nares patent. No nasal discharge, no septal abnormalities noted. Tympanic membranes are normal and external auditory canals are clear. Oropharynx with no redness, swelling, or masses, exudates, or evidence of obstruction, uvula midline. Mucous membranes moist. Neck: Trachea midline, no thyromegaly or masses palpated, and no cervical lymphadenopathy. Supple, full range of motion without nuchal rigidity, or vertebral point tenderness. No Meningismus. Chest/axilla: Normal chest wall appearance and motion. Nontender with no deformity. No lesions are appreciated. Cardiovascular: Regular rate and rhythm with a normal S1 and S2. No gallops, murmurs, or rubs. Normal PMI, no JVD. No pulse deficits. Respiratory: Lungs have equal breath sounds bilaterally, clear to auscultation and percussion. No rales, rhonchi or wheezes noted. No increased work of breathing, no retractions or nasal flaring. Abdomen/GI: Soft, non-tender, with normal bowel sounds. No distension or tympany. No guarding or rebound. No evidence of tenderness throughout. Back: No spinal tenderness. No costovertebral tenderness. Full range of motion. Skin: Warm, dry with normal turgor. Normal color with no rashes, no lesions, and no evidence of cellulitis. MS/ Extremity: Pulses equal, no cyanosis. Neurovascular intact. Full, normal range of motion. Neuro: Awake and alert, GCS 15, oriented to person, place, time, and situation. Cranial nerves II-XII grossly intact. Motor strength 5/5 in all extremities. Sensory grossly intact. Cerebellar exam normal. Normal gait. Psych: Awake, alert, with orientation to person, place and time. Behavior, mood, and affect are within normal limits. 15:10 Neck: ROM/movement: is normal, no acute changes, pain, is not appreciated, limited range of motion, is not appreciated, Meningeal signs: are not present, Kernig's sign is negative, Brudzinski's sign is negative. 15:41 ECG was reviewed by the Attending Physician. [facility] Vital Signs: 13:40 BP 132 / 80; Pulse 68; Resp 18; Temp 97.2; Pulse Ox 100% ; Weight 104.33 kg; Height 5 vg1 ft. 7 in. (170.18 cm); Pain 8/10; 15:20 BP 153 / 83; Pulse 72; Resp 18; Pulse Ox 100% ; jg9 16:11 BP 146 / 80; Pulse 67; Resp 22; Pulse Ox 100% on R/A; jg9 16:37 Pain 0/10; tw2 18:15 BP 153 / 77; Pulse 62; Resp 17; Temp 98; Pulse Ox 100% ; bp 13:40 Body Mass Index 36.02 (104.33 kg, 170.18 cm) vg1 Rashida Coma Score: 15:12 Eye Response: spontaneous(4). Verbal Response: oriented(5). Motor Response: obeys pineda commands(6). Total: 15. MDM: 15:05 Patient medically screened. pineda 15:12 Differential diagnosis: cluster headache, epidural hematoma, hyponatremia, migraine, pineda sinusitis, subarachnoid bleed, subdural hematoma, temporal arteritis, tension headache, trigeminal neuralgia. Data reviewed: vital signs, nurses notes, lab test result(s), EKG, radiologic studies, CT scan. Data interpreted: blueprint blocker: rate is 68 beats/min, rhythm is regular, Pulse oximetry: on room air is 100 %. Test interpretation: by ED physician or midlevel provider: ECG, plain radiologic studies. Counseling: I had a detailed discussion with the patient and/or guardian regarding: the historical points, exam findings, and any diagnostic results supporting the discharge/admit diagnosis, lab results, radiology results, the need for outpatient follow up, for definitive care, a family practitioner, a neurologist. 10/12 15:10 Order name: Comprehensive Metabolic Panel; Complete Time: 17:44 [facility] 10/12 15:10 Order name: CT Head Brain wo Cont; Complete Time: 17:44 [facility] 10/12 15:10 Order name: CT Head Angio; Complete Time: 17:44 [facility] 10/12 15:10 Order name: CBC with Automated Diff; Complete Time: 17:44 [facility] 10/12 17:32 Order name: Urine Dipstick-Ancillary; Complete Time: 17:44 [facility] 10/12 15:10 Order name: Urine Dipstick-Ancillary (obtain specimen); Complete Time: 18:03 [facility] 10/12 15:10 Order name: EKG; Complete Time: 15:11 [facility] 10/12 15:10 Order name: EKG - Nurse/Tech; Complete Time: 15:36 [facility] EC:41 Rate is 69 beats/min. Rhythm is regular. QRS [place] is Normal. PA interval is normal. QRS pineda interval is normal. QT interval is normal. No Q waves. T waves are Normal. No ST changes noted. Clinical impression: Normal ECG and No evidence of ischemia. Interpreted by me. Reviewed by me. Administered Medications: 15:35 Drug: NS 0.9% 500 ml Route: IV; Rate: bolus; Site: right antecubital; jg9 16:07 Follow up: IV Status: Completed infusion; IV converted to saline lock; IV Intake: 500ml j9 15:35 Drug: Zofran (Ondansetron) 4 mg Route: IVP; Site: right antecubital; jg9 15:45 Follow up: Response: No adverse reaction; Marked relief of symptoms; Nausea is decreasedj9 15:36 Drug: morphine 2 mg Route: IVP; Site: right antecubital; jg9 15:45 Follow up: Response: No adverse reaction; Pain is decreased j9 16:37 Follow up: Response: No adverse reaction; Pain is decreased; RASS: Alert and Calm (0) tw2 18:17 Follow up: Response: No adverse reaction; Pain is decreased bp 15:37 Drug: Ketorolac 15 mg Route: IVP; Site: right antecubital; jg9 15:45 Follow up: Response: No adverse reaction; Marked relief of symptoms; Pain is decreased jg9 16:10 Drug: NS 0.9% 1000 ml Route: IV; Rate: 125 ml/hr; Site: right antecubital; jg9 18:16 Follow up: IV Status: Completed infusion; IV Intake: 250ml bp Disposition Summary: 10/12/21 17:45 Discharge Ordered Location: Home pineda Problem: new pineda Symptoms: have improved pineda Condition: Stable pineda Diagnosis - Headache pineda - Essential (primary) hypertension pineda Followup: pineda - With: Private Physician - When: 2 - 3 days - Reason: Recheck today's complaints, Continuance of care, Re-evaluation by your physician Followup: pineda - With: - When: 2 - 3 days - Reason: Recheck today's complaints, Continuance of care, Re-evaluation by your physician Discharge Instructions: - Discharge Summary Sheet pineda - Hypertension, Adult pineda - Hypertension, Adult, Zjev-is-Gbrh pineda - How to Take Your Blood Pressure, Fgwg-yp-[id number] pineda - General Headache Without Cause, Hxze-fz-Sfcu pineda - Managing Your Hypertension pineda Forms: - Medication Reconciliation Form pineda - Thank You Letter pineda - Antibiotic Education pineda - Prescription Opioid Use pineda Prescriptions: - Fioricet with Codeine [id number] mg Oral capsule - take 1 capsule by ORAL route every 4 hours as needed not to exceed 6 capsules pineda per 24hrs; 15 capsule; Refills: 0, Product Selection Permitted - Lisinopril 10 mg Oral Tablet - take 1 tablet by ORAL route once daily; 20 tablet; Refills: 0, Product pineda Selection Permitted Signatures: Dispatcher [employer] Cory Dennis MD MD cha Garcia, Victoria RN RN vg1 Paola Squires jg9 Kim De La Cruz RN tw2 Jovon Durbin RN bp Corrections: (The following items were deleted from the chart) 15:39 15:11 CBC+H.LAB.BRZ ordered. JERALD MARQUES
[2021-10-12 18:21] VITALS: O2SAT 100
[2021-10-12 18:28] VITALS: BP 153/77; TEMP 98
== END 2021-10-12 18:17 | disposition home or self-care (01) ==
LOC: ER 12:17
DX: R51.9 Headache, unspecified (principal); I10 Essential (primary) hypertension; F41.8 Other specified anxiety disorders
CPT/HCPCS: 96361; 93005; 85025; 36415; 81003; 80053; 70450; 70496; 96375; 96374; 99284; Q9967; J2270; J7030; J2405

== ENCOUNTER 2022-03-17 07:48 | Emergency (ER) | payer OTHER ==
--- OUTSIDE RECORDS SUMMARY | 2022-03-17 07:50 | XMS REPORT | Continuity of Care Document ---
:1960 Author Organization [facility] t Address [address] [place] [address] Care Team Providers Name Role Phone Samaria Saeed Attending Clinician Unavailable MARLO Attending Clinician Unavailable MANOJ Attending Clinician Unavailable SENIA FRANCO Attending Clinician Unavailable Payers Payer Name Policy Type Policy Number Effective Date Expiration Date S tish [employer] MEDICARE [id number] 2021 [facility] 00:00:00 Problems This patient has no known problems. Allergies, Adverse Reactions, Alerts Allergy Allergy Status Severity Reaction(s) Onset Inactive Treating Comm ents Source Name Type Date Date Clinician No Known DA Active U 2019-11 [facility] No Known DA Active U 2019-11 [facility] 12[facility] Medications This patient has no known medications. Procedures This patient has no known procedures. Encounters Start End Encounter Admission Attending Care Care Encounter Source Date/Time Date/Time Type Type Clinicians Facility Department ID 2021-12-07 Outpatient Dee Saeed [facility] [id number] 14:32:19 [facility] 2021-08-19 Outpatient MARLO [facility] [id number] [place] 10:01:04 [place] [id number] Inpatient HCAPM LASHAE [id number] [facility] 19:13[id number] [facility] 2021-11-18 2021-11-18 [id number] Judi Nisha [facility] 2021-03-08 2021-03-08 [facility] [id number] [place] 00:00:00 00:00:00 LELO jay 2021-03-07 2021-03-07 [facility] [id number] [place] 08:10:54 08:16:08 LELO jay 2021-03-04 2021-03-04 Outpatient MANOJ, [facility] [id number] [place] 11:13:31 11:54:54 LELO jay 2021-03-04 2021-03-04 Outpatient MANOJ, [facility] [id number] [place] 11:07:33 11:24:25 LELO jay 2021-03-04 2021-03-04 [facility] [id number] [place] 00:00:00 00:00:00 LELO jay 2021-03-03 2021-03-03 Emergency E JOAN, [facility] 16:10:00 18:55:00 MOUNIKA 2021-03-03 2021-03-03 [facility] [id number] [place] 14:17:26 14:43:00 LELO jay 2021-03-02 2021-03-02 Outpatient [facility] [id number] [place] 00:00:00 00:00:00 [facility] 2021-02-25 2021-02-25 [facility] [id number] [place] 00:00:00 00:00:00 LELO jay 2021-02-25 2021-02-25 Outpatient [facility] [id number] [place] 00:00:00 00:00:00 [facility] 2021-02-23 2021-02-23 [facility] [id number] [place] 08:23:29 09:45:01 LELO jay 2021-02-17 2021-02-17 [facility] [id number] [place] 07:48:50 09:01:21 LELO jay 2021-02-17 2021-02-17 Outpatient ARANDA, [facility] [id number] [place] 00:00:00 00:00:00 LELO jay Results Test Description [...] may varyby meth od. Completed by Nursing: KIMBERLY RFLX MICR CULT IF [id number] 21:41:00 Test Item Value Reference Range Interpretation [...] RiskForSepsis-no oth srcUA RFLX MICR CULT IF [id number] 21:38:00 Test Item Value Reference Range Interpretation [...] culture: RiskForSepsis-no oth src- XR CHEST 1 [id number] [facility]:09[facility] 1960 Sex: F Name: LOLI FRANCES [facility] : 1960ge/S: 59 / F [id number] Unit #: [id number] Loc: [place] [address] Phys: Meredith Hidalgo MD Acct: [id number] Dis Date: Status: REG ER PHONE#: [phone] Exam Date: 10/11/20202029 FAX #: Reason: chest pain EXAMS: CPT: [id number] XR CHEST 1 V 82244 Fluoro Time: DAP (Gy m2): Air Kerma (mGy): Location code: H5 Chest1 view Indication: chest pain. Comparison: None Findings: The heart and mediastinum are not remarkable. Costophrenic angles are clear. Lungs are clear. Bone is unremarkable for age. Impression: 1. No radiographic evidence of acute cardiopulmonary disease. Electronically Signed by Ricki Desai o n 10/11/2020 at 2108 Reported and signed by: Alvino Desai M.D. CC: Meredith Hidalgo MD PAGE 1 SignedReport Name: LOLI FRANCES [facility] : 1960 Age/S: 59 / F [id number] Unit #: [id number] Loc: [place] [address] Phys: Meredith Hidalgo MD Acct: [id number] Dis Date: Status: REG ER PHONE #: [phone] Exam Date: 10/11/20202029 FAX #: Reason: chest pain EXAMS: CPT: [id number] XR CHEST 1 V 73853 Fluoro Time: DAP (Gy m2): Air Kerma (mGy): <Continued> Technologist: Gwendolyn Breen, RT(R)(CT) Trnscb Date/Time: 10/11/2020 (2108) [email or web address] Orig Print D/T: S: 10/11/2020 (2111) PAGE 2 Signed Report- CT HEAD/BRAIN W/O CONT 2020-10-11 20:43:00 [facility] 1960 Sex: F Name: LOLI FRANCES : 1960ge/S: 59 / F [id number] Unit #: [id number] Loc: [place] [address] Phys: Meredith Hidalgo MD Acct: [id number] Dis Date: Status: REG ER PHONE#: [phone] Exam Date: 10/11/20202022 FAX #: Reason:weakness EXAMS: CPT: [id number] CT HEAD/BRAIN W/O CONT 20072 Location code: [address] Brain Without [...] contrast CT scan of the brain. at 2043 Reported and signed by: Alvino Desai M.D. PAGE 1 Signed Report (CONTINUED) Name: LOLI FRANCES : 1960 Age/S: 59 / F [id number] Unit #: [id number] Loc: [place] [address] Phys: Meredith Hidalgo MD Acct: [id number] Dis Date: Status: REG ER PHONE #: [phone] Exam Date: 10/11/20202022 FAX #: Reason: weakness EXAMS: CPT: [id number] CT HEAD/BRAIN W/O CONT 22604 <Continued> CC: Meredith Hidalgo MD Technologist:Gwendolyn Breen, RT(R)(CT) CTDI: DLP: Trnscb Date/Time: 10/11/2020 (2042) [email or web address] Orig Print D/T: S: 10/11/2020 (2046) PAGE 2 Signed ReportHEPATIC FUNCTION [id number] 20:32:00 Test Item Value Reference Range Interpretation [...] CK) Completed by Nursing: NONT PRO-BRAIN NATRIURETIC [id number] 20:32:00 Test Item Value Reference Range Interpretation Comments NT PRO-BRAIN NATRIURETIC PEPTI 177 PG/ML 0-100 H (test code = PROBNP) Completed by Nursing: [id number] 20:32:00 Test Item Value Reference Range Interpretation [...] may jack yby method. Completed by Nursing: NOBASIC METABOLIC [id number] 20:32:00 Test Item Value Reference Range Interpretation [...] 9.0 MG/DL 8.5-10.1 N Completed by Nursing: NOCBC W/O [id number] 20:11:00 Test Item Value Reference Range Interpretation [...]
[2022-03-17 08:46] LABS: Hematocrit 34.5 % (36.0-45.0); Lymphocytes % 32.3 % (15.3-44.8); MPV 7.8 fL (7.6-11.3)
[2022-03-17 09:35] LABS: Protime INR 1.07
[2022-03-17 09:48] LABS: ALT/SGPT 19 U/L (12-78); AST/SGOT 7 U/L (15-37); Albumin 3.5 g/dL (3.4-5.0); Alkaline Phosphatase 71 U/L (45-117); BUN Blood Urea Nitrogen 10 mg/dL (7-18); Bicarbonate 29 mmol/L (21-32); Bilirubin Direct 0.1 mg/dL (0-0.2); Bilirubin Total 0.5 mg/dL (0.2-1.0); Glucose Level 102 mg/dL (74-106); Magnesium 2.1 mg/dL (1.8-2.4); NT PRO-BNP 215 pg/mL (<125); Potassium 4.2 mmol/L (3.5-5.1); Protein, Total 7.7 g/dL (6.4-8.2); Sodium Level 141 mmol/L (136-145); Troponin High Sensitivity 5.9 pg/mL (<58.9)
--- NOTE | 2022-03-17 10:09 | RAD REPORT ---
EXAM DESCRIPTION: RAD - Chest Single View - 03/17/2022 9:37 am CLINICAL HISTORY: CHEST PAIN COMPARISON: Chest Single View dated 05/27/2021; Chest Single View dated 05/08/2021; Chest Single View dated 01/03/2021; Chest Single View dated 08/19/2020 FINDINGS: Lines: None. Lungs: No evidence of edema or pneumonia. Pleural: No significant pleural effusions or pneumothorax. Cardiac: The heart size is within normal limits. Bones: No acute fractures. Other: IMPRESSION: No acute cardiopulmonary disease.
--- NOTE | 2022-03-17 11:19 | ER ---
Nurse's Notes [facility] Name: Karen Clements Age: 61 yrs Sex: Female : 1960 Arrival Date: 03/17/2022 Time: 07:51 Bed 5 Private MD: Diagnosis: Chest pain, unspecified Presentation: 03/17 08:01 Chief complaint: Patient states: Chest pain that began yesterday, comes and goes. Pt ss states at times it will go through her back and down her L arm. Denies pain at this time. Coronavirus screen: Client denies travel out of the [place] in the last 14 days. Ebola Screen: Patient denies exposure to infectious person. Patient denies travel to an Ebola-affected area in the 21 days before illness onset. Initial Sepsis Screen: Does the patient meet any 2 criteria? No. Patient's initial sepsis screen is negative. Does the patient have a suspected source of infection? No. Patient's initial sepsis screen is negative. Risk Assessment: Do you want to hurt yourself or someone else? Patient reports no desire to harm self or others. Onset of symptoms. 08:01 Method Of Arrival: Ambulatory ss 08:01 Acuity: JACQUELIN 3 ss Historical: - Allergies: 08:04 No Known Allergies; ss - PMHx: 08:04 Anxiety; Depression; Glaucoma; Hypertension; ss - Immunization history:: Client reports receiving the 2nd dose of the Covid vaccine. - Social history:: Smoking status: Patient denies any tobacco usage or history of. Screenin:09 Abuse screen: Denies threats or abuse. Nutritional screening: No deficits noted. jd3 Tuberculosis screening: No symptoms or risk factors identified. Fall Risk Ambulatory Aid- None/Bed Rest/Nurse Assist (0 pts). Gait- Normal/Bed Rest/Wheelchair (0 pts) Mental Status- Oriented to own ability (0 pts). Total Gamble Fall Scale indicates No Risk (0-24 pts). Assessment: 08:07 General: Appears in no apparent distress. comfortable, Behavior is calm, cooperative, jd3 appropriate for age, Reports chest pain that traveled to left arm and to the back yesterday. Pain: Denies pain. Pain does not radiate. Pain began gradually. Neuro: Level of Consciousness is awake, alert, obeys commands, Oriented to person, place, time, situation. Cardiovascular: Capillary refill < 3 seconds Patient's skin is warm and dry. Rhythm is regular. Respiratory: Airway is patent Respiratory effort is even, unlabored, Respiratory pattern is regular, symmetrical, Denies cough, shortness of breath. GI: No signs and/or symptoms were reported involving the gastrointestinal system. : No signs and/or symptoms were reported regarding the genitourinary system. EENT: No signs and/or symptoms were reported regarding the EENT system. Derm: Skin is intact, Skin is dry, Skin is normal, Skin temperature is warm. Musculoskeletal: Circulation, motion, and sensation intact. Range of motion: intact in all extremities. 09:19 Reassessment: Patient appears in no apparent distress at this time. No changes from jd3 previously documented assessment. Patient and/or family updated on plan of care and expected duration. Pain level reassessed. Patient is alert, oriented x 3, equal unlabored respirations, skin warm/dry/pink. 10:32 Reassessment: Patient appears in no apparent distress at this time. No changes from jd3 previously documented assessment. Patient and/or family updated on plan of care and expected duration. Pain level reassessed. Patient is alert, oriented x 3, equal unlabored respirations, skin warm/dry/pink. 11:37 Reassessment: Patient and/or family updated on plan of care and expected duration. Pain jd3 level reassessed. Patient is alert, oriented x 3, equal unlabored respirations, skin warm/dry/pink. pt reporting she wanted to leave because she was hungry. pt refusing second troponin. even and steady gait upon discharge. Vital Signs: 08:01 BP 152 / 90; Pulse 80; Resp 16; Temp 97.9(TE); Pulse Ox 100% on R/A; Weight 127.01 kg; ss Height 5 ft. 7 in. (170.18 cm); Pain 0/10; 09:19 BP 150 / 79; Pulse 77; Resp 18 S; Pulse Ox 100% on R/A; jd3 10:32 BP 158 / 80; Pulse 76; Resp 17 S; Pulse Ox 100% on R/A; jd3 08:01 Body Mass Index 43.85 (127.01 kg, 170.18 cm) ED Course: 07:51 Patient arrived in ED. ds1 07:55 Priyank Subramanian RN is Primary Nurse. jd3 08:04 Triage completed. ss 08:04 Arm band placed on right wrist. ss 08:07 Rajan Esqueda NP is PHCP. pm1 08:07 Humberto Ornelas MD is Attending Physician. pm1 08:09 Patient has correct armband on for positive identification. Placed in gown. Bed in low jd3 position. Call light in reach. Side rails up X 1. Client placed on continuous cardiac and pulse oximetry monitoring. NIBP monitoring applied. 08:10 EKG done, by ED staff, reviewed by Rajan Esqueda NP. Patient maintains SpO2 jd3 saturation greater than 95% on room air. 08:10 Inserted saline lock: 20 gauge in right antecubital area, using aseptic technique. tp1 Blood collected. 08:20 Umer Nielsen MD is Attending Physician. pm1 08:29 Troponin HS Sent. tp1 08:29 PT-INR Sent. tp1 08:29 NT PRO-BNP Sent. tp1 08:29 Magnesium Sent. tp1 08:29 LFT's Sent. tp1 09:39 XRAY Chest (1 view) In Process Unspecified. EDMS 11:17 Dee Saeed MD is Referral Physician. pm1 11:36 No provider procedures requiring assistance completed. IV discontinued, intact, jd3 bleeding controlled, No redness/swelling at site. Pressure dressing applied. Administered Medications: No medications were administered Outcome: 11:18 Discharge ordered by MD. pm1 11:34 Patient left the ED. jd3 11:36 Discharged to home ambulatory. jd3 11:36 Condition: stable 11:36 Discharge instructions given to patient, Instructed on discharge instructions, follow up and referral plans. Demonstrated understanding of instructions, follow-up care. Signatures: Dispatcher [facility] Rosalba Jon ds1 Antoinette Carrero RN RN ss Marinas, Patrick, NP TRANSITION ASSISTANT pm1 Priyank Subramanian RN RN jd3 Parker, Tiffany tp1 Corrections: (The following items were deleted from the chart) 08:09 08:07 General: Appears in no apparent distress. comfortable, Behavior is calm, jd3 cooperative, appropriate for age, jd3 08:43 08:10 Inserted saline lock: 20 gauge in left antecubital area, using aseptic technique. tp1 Blood collected. tp1
--- NOTE | 2022-03-17 11:19 | EDPHYS ---
Physician Documentation [facility] Name: Karen Clements Age: 61 yrs Sex: Female : 1960 Arrival Date: 03/17/2022 Time: 07:51 Bed 5 Private MD: ED Physician Umer Nielsen HPI: 03/17 08:34 This 61 yrs old Black Female presents to ER via Ambulatory with complaints of Chest pm1 Pain. 08:34 The patient or guardian reports chest pain that is located primarily in the anterior pm1 aspect of left upper chest. Onset: yesterday. The pain radiates to the left arm, back. Associated signs and symptoms: Pertinent negatives: abdominal pain, cough, diaphoresis, dizziness, nausea, shortness of breath, vomiting. The chest pain is described as sharp. Duration: The patient or guardian reports multiple episodes, that have now resolved. Modifying factors: The symptoms are alleviated by nothing. the symptoms are aggravated by palpation of area. Severity of pain: in the emergency department the pain has resolved. The patient has not experienced similar symptoms in the past. The patient has not recently seen a physician, the patient's primary care provider is Dr. Saeed. Historical: - Allergies: 08:04 No Known Allergies; ss - PMHx: 08:04 Anxiety; Depression; Glaucoma; Hypertension; ss - Immunization history:: Client reports receiving the 2nd dose of the Covid vaccine. - Social history:: Smoking status: Patient denies any tobacco usage or history of. ROS: 08:34 Constitutional: Negative for fever, chills, and weight loss, Respiratory: Negative for pm1 shortness of breath, cough, wheezing, and pleuritic chest pain. 08:34 Abdomen/GI: Negative for abdominal pain, nausea, vomiting, diarrhea, and constipation, Back: Negative for injury and pain, MS/Extremity: Negative for injury and deformity, Skin: Negative for injury, rash, and discoloration, Neuro: Negative for headache, weakness, numbness, tingling, and seizure. 08:34 Cardiovascular: Positive for chest pain, Negative for edema, palpitations. 08:34 All other systems are negative. pm1 Exam: 08:34 Constitutional: This is a well developed, well nourished patient who is awake, alert, pm1 and in no acute distress. Head/Face: Normocephalic, atraumatic. 08:34 Abdomen/GI: Soft, non-tender, with normal bowel sounds. No distension or tympany. No guarding or rebound. No evidence of tenderness throughout. Back: No spinal tenderness. No costovertebral tenderness. Full range of motion. Skin: Warm, dry with normal turgor. Normal color with no rashes, no lesions, and no evidence of cellulitis. MS/ Extremity: Pulses equal, no cyanosis. Neurovascular intact. Full, normal range of motion. 08:34 Cardiovascular: Exam negative for acute changes, Rate: normal, Rhythm: regular, Pulses: no pulse deficits are appreciated, Heart sounds: normal, normal S1and S2, Edema: is not appreciated. 08:34 Respiratory: Exam negative for acute changes, respiratory distress, shortness of breath, Breath sounds: are clear throughout. 08:34 Neuro: Exam negative for acute changes, Orientation: is normal, Mentation: is normal, Motor: is normal, Sensation: no obvious gross deficits. 08:34 Eyes: Exam is negative for acute changes, Periorbital structures: appear normal, pm1 Extraocular movements: no acute changes, Sclera: no acute changes, icterus, is not appreciated. 08:34 ENT: Exam is negative for acute changes, Mouth: is normal, no acute changes, Lips: normal, Oral mucosa: normal, pink and intact, moist. Vital Signs: 08:01 BP 152 / 90; Pulse 80; Resp 16; Temp 97.9(TE); Pulse Ox 100% on R/A; Weight 127.01 kg; ss Height 5 ft. 7 in. (170.18 cm); Pain 0/10; 09:19 BP 150 / 79; Pulse 77; Resp 18 S; Pulse Ox 100% on R/A; jd3 10:32 BP 158 / 80; Pulse 76; Resp 17 S; Pulse Ox 100% on R/A; jd3 08:01 Body Mass Index 43.85 (127.01 kg, 170.18 cm) ss MDM: 08:20 Patient medically screened. pm1 11:14 Data reviewed: vital signs. Data interpreted: Pulse oximetry: on room air is 100 %. pm1 Interpretation: normal. 11:14 Refusal of service: The patient/guardian displays adequate decision making capability pm1 and despite a detailed discussion of alternatives, benefits, risks, and consequences refuses: patient does not want her troponin repeated. Explained to her the importance of getting her troponin repeated. Patient said her ride is on the way to pick her up and she is hungry and ready to eat now. 11:14 Counseling: I had a detailed discussion with the patient and/or guardian regarding: lab pm1 results, radiology results, the need for outpatient follow up, a family practitioner, Dr. Saeed, to return to the emergency department if symptoms worsen or persist or if there are any questions or concerns that arise at home. 03/17 08:27 Order name: Basic Metabolic Panel; Complete Time: 09:48 pm1 03/17 08:27 Order name: CBC with Diff; Complete Time: 08:56 pm1 03/17 08:27 Order name: LFT's; Complete Time: 09:48 pm1 03/17 08:27 Order name: Magnesium; Complete Time: 09:48 pm1 03/17 08:27 Order name: NT PRO-BNP; Complete Time: 09:48 pm1 03/17 08:27 Order name: PT-INR; Complete Time: 09:48 pm1 03/17 08:27 Order name: Troponin HS; Complete Time: 09:48 pm1 03/17 08:27 Order name: XRAY Chest (1 view); Complete Time: 10:42 pm1 03/17 08:27 Order name: EKG; Complete Time: 08:28 pm1 03/17 08:27 Order name: Cardiac monitoring; Complete Time: 08:29 pm1 03/17 08:27 Order name: EKG - Nurse/Tech; Complete Time: 08:28 pm1 03/17 08:27 Order name: IV Saline Lock; Complete Time: 08:28 pm1 03/17 08:27 Order name: Labs collected and sent; Complete Time: 08:28 pm1 03/17 08:27 Order name: O2 Per Protocol; Complete Time: 08:28 pm1 03/17 08:27 Order name: O2 Sat Monitoring; Complete Time: 08:28 pm1 Administered Medications: No medications were administered Disposition Summary: 03/17/22 11:18 Discharge Ordered Location: Home pm1 Problem: new pm1 Symptoms: have improved pm1 Condition: Undetermined pm1 Diagnosis - Chest pain, unspecified pm1 Followup: pm1 - With: Dee Saeed MD - When: Upon discharge from the Emergency Department - Reason: Recheck today's complaints, Continuance of care, Re-evaluation by your physician Discharge Instructions: - Discharge Summary Sheet ss - Nonspecific Chest Pain, Adult pm1 Forms: - Medication Reconciliation Form pm1 - Thank You Letter pm1 - Antibiotic Education pm1 - Prescription Opioid Use pm1 Signatures: Dispatcher [employer] Antoinette Tilley RN RN ss Marinas, Patrick STATUE CARVER STATUE CARVER pm1 Corrections: (The following items were deleted from the chart) 08:39 08:34 The pain radiates to back, pm1 pm1
[2022-03-17 11:40] VITALS: TEMP 97.9; O2SAT 100
[2022-03-17 11:43] VITALS: BP 158/80
--- NOTE | 2022-03-18 09:25 | EKG ---
Test Date: 2022-03-17 Test Time: 08:00:06 Machine Scallop Cutter: RANDY MEASUREMENT RESULTS: Intervals: Rate: 74 MN: 146 QRSD: 82 QT: 392 QTc: 435 Morris: P: 54 MN: 146 QRS: 16 T: -27 INTERPRETIVE STATEMENTS: Normal sinus rhythm Nonspecific ST and T wave abnormality Abnormal ECG Compared to ECG 10/12/2021 15:23:17 ST (T wave) deviation now present Electronically Signed On 03-18-22 09:22:47 CDT by Walt Mena
== END 2022-03-17 11:34 | disposition home or self-care (01) ==
LOC: ER 07:48
DX: R07.9 Chest pain, unspecified (principal); I10 Essential (primary) hypertension; F41.9 Anxiety disorder, unspecified; F32.A Depression, unspecified
CPT/HCPCS: 36415; 71045; 80048; 80076; 83735; 83880; 84484; 85025; 85610; 93005; 99284